=== PATIENT | male | born 1965 | race Caucasian/White ===

== ENCOUNTER 2017-04-13 10:43 | Observation (INO) | payer OTHER ==
--- NOTE | 2017-04-13 12:30 | DR.H&P ---
H&P - History & Physical for Day of: H&P Date: 04/13/17 - Chief Complaint Chief Complaint: Chest Pain, Dyspnea - Allergies Allergies/Adverse Reactions: Allergies Allergy/AdvReac Type Severity Reaction Status Date / Time No Known Drug Allergies Allergy Verified 04/13/17 11:24 - History of Present Illness History of Present Illness: The patient is a 51-year-old white male who presents to the clinic with complaints of chest pain. Patient describes having left-sided chest discomfort. States this discomfort is not affected by activity. Does have shortness of breath. Patient does have a 2-1/2-3 pack per day tobacco usage. Patient did have her Regadenison cardiac stress test which was negative. Patient has had an echo that revealed right atrial enlargement and grade 2 diastolic dysfunction. Patient today does complain of having increased pain. Patient will be admitted for further evaluation. - Past Medical History Past Medical History: COPD, Diabetes, Hypertension Additional Medical History: Skin Cancer - Past Surgical History Surgical History: Ortho Surgery, Other (Eye surgery) - Family History Family Medical History: Diabetes Mellitus, Hypertension Family History Comment: Kidney disease with failure - Social History Does patient currently use any type of tobacco product: Yes Have you used tobacco products in the last 12 months: Yes Type of Tobacco Use: Cigarettes How many years tobacco product used: 25 Packs per day or dips/chews per day: 2.5-3ppd Does any household member use tobacco: No Alcohol Use: Occasionally Drug Use: None - Medications Home Medications: Amlodipine Besylate [NORVASC 10 MG *] 1 tab PO DAILY 04/13/17 [History Confirmed 04/13/17] Amlodipine Besylate [NORVASC 5 MG *] 1 tab PO DAILY 04/13/17 [History Confirmed 04/13/17] Budesonide-Formoterol [SYMBICORT INH 160-4.5 mcg (10.2 g) *] 1 inh INH DAILY [History Confirmed 04/13/17] Eovwrrfhof-Owsf-Ujsmyqnu [FIORICET 50/325/40 MG *] 1 tab PO Q6H PRN 04/13/17 [ History Confirmed 04/13/17] Lisinopril 1 tab PO DAILY 04/13/17 [History Confirmed 04/13/17] Ranitidine HCl 1 tab PO HS 09/27/17 [History Confirmed 04/13/17] - Review of Systems Constitutional: Malaise Eyes: No Symptoms Reported ENT: No Symptoms Reported Respiratory: Shortness of Breath Cardiovascular: Chest Pain Gastrointestinal: No Symptoms Reported Genitourinary: No Symptoms Reported Musculoskeletal: No Symptoms Reported Skin: No Symptoms Reported Neurological: No Symptoms Reported - Physical Exam Vital Signs: Temperature 98.3 F Pulse Rate [Right Brachial] 79 Respiratory Rate 20 Blood Pressure [Left Arm] 131/73 Blood Pressure [Right Arm] 131/73 O2 Sat by Pulse Oximetry 96 Oriented: Normal Eyes: Normal Ear: Normal Nose: Normal Throat: Normal Respiratory: Clear Throughout (But Coarse) Cardiovascular: Normal : Normal Auscultation: Bowel Sounds: Normal Palpation: Normal Tenderness: Normal Skin: Normal Musculoskeletal: Normal Psychiatric: Normal Mood Description: Calm Affect: Normal Speech Pattern: Clear - Assessment/Plan (1) Chest pain Status: Acute Plan: Cardiac enzymes, ekgs (2) Diastolic heart failure Qualifiers: Heart failure chronicity: chronic Qualified Code(s): I50.32 - Chronic diastolic (congestive) heart failure Narrative Support Text: Grade 2 on ECHO Status: Acute (3) Dyspnea Qualifiers: Dyspnea type: dyspnea on exertion Qualified Code(s): R06.09 - Other forms of dyspnea Status: Acute Plan: CT Chest
[2017-04-13 12:34] LABS: BASOPHILS # (AUTO) 0.2 X10^3/uL (0.0-0.1); BASOPHILS % (AUTO) 1.8 % (0.2-1.0); EOSINOPHILS # (AUTO) 0.2 x10^3/uL (0.0-0.2); EOSINOPHILS % (AUTO) 2.3 % (0.9-2.9); HEMOGLOBIN 15.1 g/dL (13.5-18.0); LYMPHOCYTES # (AUTO) 2.5 X10^3/uL (1.3-2.9); LYMPHOCYTES % (AUTO) 24.1 % (21.0-51.0); MEAN CORPUSCULAR HEMOGLOBIN 32.3 pg (27.0-34.0); MEAN CORPUSCULAR HGB CONC 35.2 g/dL (33.0-35.0); MEAN CORPUSCULAR VOLUME 91.8 fL (80.0-100.0); MONOCYTES # (AUTO) 0.8 x10^3/uL (0.3-0.8); MONOCYTES % (AUTO) 7.6 % (0.0-13.0); NEUTROPHILS # (AUTO) 6.7 x10^3/uL (2.2-4.8); NEUTROPHILS % (AUTO) 64.2 % (42.0-75.0); PLATELET COUNT 290 X10^3/uL (150.0-450.0); RED BLOOD COUNT 4.68 X10^6/uL (4.7-6.0); WHITE BLOOD COUNT 10.5 X10^3/uL (3.6-10.0)
[2017-04-13 12:43] LABS: ALANINE AMINOTRANSFERASE 51 Units/L (12-78); ALBUMIN 3.8 g/dL (3.4-5.0); ALKALINE PHOSPHATASE 76 Units/L (46-116); ASPARTATE AMINO TRANSFERASE 33 Units/L (15-37); BLOOD UREA NITROGEN 11 mg/dL (7-18); CALCIUM 9.1 mg/dL (8.5-10.1); CHLORIDE 103 mmol/L (98-107); MAGNESIUM 2.1 mg/dL (1.7-2.9); SODIUM 137 mmol/L (136-145); TOTAL PROTEIN 7.5 g/dL (6.4-8.2); eGFR BLACK RACES > 60 (>60); eGFR NON BLACK RACES > 60 (>60)
[2017-04-13 13:00] VITALS: BMI 29.7
[2017-04-13 13:11] LABS: CKMB % 0.4 % (<4); CREATINE KINASE 573 Units/L (39-308); CREATINE KINASE MB 2.2 ng/mL (0-4.0); TROPONIN I < 0.02 ng/mL (0-1.5)
[2017-04-13] MEDS ORDERED: NICODERM PATCH 21 MG/24 HR TD SCH (14:00)
[2017-04-13 14:15] LABS: BILIRUBIN,URINE NEGATIVE (NEGATIVE); BLOOD/HEMOGLOBIN,URINE NEGATIVE (NEGATIVE); GLUCOSE, URINE NEGATIVE (NEGATIVE); KETONES,URINE NEGATIVE (NEGATIVE); LEUKOCYTE ESTERASE ,URINE NEGATIVE (NEGATIVE); NITRITES,URINE NEGATIVE (NEGATIVE); PH,URINE 6.5 (5.0 - 8.0); PROTEIN,URINE NEGATIVE (NEGATIVE); UROBILINOGEN,URINE NORMAL (NORMAL)
[2017-04-13 14:22] LABS: AMORPHOUS SEDIMENT,UR TRACE /HPF (NEGATIVE); APPEARANCE,URINE CLEAR (CLEAR); BACTERIA,URINE NEGATIVE /HPF (NEGATIVE); COLOR,URINE PALE YELLOW (YELLOW); MUCUS,URINE RARE /HPF (NEGATIVE); RBC,URINE NONE SEEN /HPF (NEGATIVE); SQUAMOUS EPITHELIAL CELL,UR NEGATIVE /HPF (NEGATIVE)
[2017-04-13] MEDS ORDERED: MORPHINE SULFATE INJ 2 MG INJ IVP PRN (17:48)
[2017-04-13] MEDS ORDERED: TYLENOL 325 MG TAB PO PRN (17:48)
[2017-04-13] MEDS ORDERED: NORCO 5/325 MG TAB PO PRN (17:48)
[2017-04-13 19:09] LABS: CKMB % 0.4 % (<4); CREATINE KINASE 401 Units/L (39-308); CREATINE KINASE MB 1.4 ng/mL (0-4.0); TROPONIN I < 0.02 ng/mL (0-1.5)
[2017-04-13] MEDS ORDERED: FIORICET TAB PO PRN (21:16)
--- NOTE | 2017-04-13 23:38 | RAD ---
HISTORY: chest pain Study: single view of the chest Comparison:none Findings: The trachea is midline. The cardiac silhouette is unremarkable. The lungs are clear without focal i nfiltrate or effusion. The bony thorax is unremarkable. IMPRESSION: 1. No acute cardiopulmonary disease. Reported By:
[2017-04-14 01:41] LABS: CKMB % 0.3 % (<4); CREATINE KINASE 352 Units/L (39-308); CREATINE KINASE MB 1.2 ng/mL (0-4.0); TROPONIN I < 0.02 ng/mL (0-1.5)
[2017-04-14 04:19] VITALS: BP 87/53
[2017-04-14 05:26] LABS: BASOPHILS # (AUTO) 0.1 X10^3/uL (0.0-0.1); BASOPHILS % (AUTO) 1.4 % (0.2-1.0); EOSINOPHILS # (AUTO) 0.3 x10^3/uL (0.0-0.2); HEMOGLOBIN 14.2 g/dL (13.5-18.0); LYMPHOCYTES # (AUTO) 2.4 X10^3/uL (1.3-2.9); LYMPHOCYTES % (AUTO) 32.1 % (21.0-51.0); MEAN CORPUSCULAR HGB CONC 34.6 g/dL (33.0-35.0); MEAN CORPUSCULAR VOLUME 92.3 fL (80.0-100.0); MEAN PLATELET VOLUME 8.8 fL (7.4-11.0); MONOCYTES # (AUTO) 0.7 x10^3/uL (0.3-0.8); MONOCYTES % (AUTO) 9.6 % (0.0-13.0); NEUTROPHILS # (AUTO) 3.9 x10^3/uL (2.2-4.8); NEUTROPHILS % (AUTO) 52.9 % (42.0-75.0); PLATELET COUNT 256 X10^3/uL (150.0-450.0); RED BLOOD COUNT 4.44 X10^6/uL (4.7-6.0); RED CELL DISTRIBUTION WIDTH 13.3 % (11.6-16.5); WHITE BLOOD COUNT 7.4 X10^3/uL (3.6-10.0)
[2017-04-14 05:34] LABS: ALANINE AMINOTRANSFERASE 40 Units/L (12-78); ALBUMIN 3.2 g/dL (3.4-5.0); ALKALINE PHOSPHATASE 71 Units/L (46-116); ASPARTATE AMINO TRANSFERASE 22 Units/L (15-37); BLOOD UREA NITROGEN 10 mg/dL (7-18); CALCIUM 8.5 mg/dL (8.5-10.1); CARBON DIOXIDE 25.6 mmol/L (21-32); CHLORIDE 104 mmol/L (98-107); CHOL/HDL RATIO 6.7 (0.0-5.0); CHOLESTEROL 188 mg/dL (0-200); COR CA(FOR HYPOALB) 9.1 mg/dL (8.5-10.1); COR NA(FOR HYPERGLY) 139 mmol/L (136-145); CREATININE 1.02 mg/dL (0.70-1.30); HDL CHOLESTEROL 28 mg/dL (40-60); SODIUM 139 mmol/L (136-145); TOTAL PROTEIN 6.4 g/dL (6.4-8.2); TRIGLYCERIDES 104 mg/dL (0-150); eGFR BLACK RACES > 60 (>60); eGFR NON BLACK RACES > 60 (>60)
[2017-04-14] MEDS ORDERED: NORVASC TAB 10 MG PO SCH (09:00)
[2017-04-14] MEDS ORDERED: ZESTRIL TAB 20 MG PO SCH (09:00)
[2017-04-14] MEDS ORDERED: ASPIRIN PO SCH (09:00)
[2017-04-14] MEDS ORDERED: ZANTAC PO SCH (21:00)
== END 2017-04-14 07:15 | disposition short-term general hospital (02) ==
LOC: MED/SURG 10:43
PROVIDERS: ADMIT Internal Medicine; ATTEND Internal Medicine
DX: R07.89 Other chest pain (principal); R94.4 Abnormal results of kidney function studies; R06.09 Other forms of dyspnea; J44.9 Chronic obstructive pulmonary disease, unspecified; E11.65 Type 2 diabetes mellitus with hyperglycemia; I10 Essential (primary) hypertension; I50.32 Chronic diastolic (congestive) heart failure
CPT/HCPCS: 36415; 71010; 80053; 80061; 81001; 82550; 82553; 83735; 84484; 85025; 85610; 93005; 93010; 94760; A4222; G0378; J2270

== ENCOUNTER 2017-06-28 12:56 | Observation (INO) | payer OTHER ==
[2017-06-28 15:17] LABS: BASOPHILS # (AUTO) 0.1 X10^3/uL (0.0-0.1); BASOPHILS % (AUTO) 1.1 % (0.2-1.0); EOSINOPHILS # (AUTO) 0.2 x10^3/uL (0.0-0.2); EOSINOPHILS % (AUTO) 2.2 % (0.9-2.9); HEMATOCRIT 45.6 % (42.0-54.0); HEMOGLOBIN 15.7 g/dL (13.5-18.0); LYMPHOCYTES # (AUTO) 2.4 X10^3/uL (1.3-2.9); LYMPHOCYTES % (AUTO) 24.1 % (21.0-51.0); MEAN CORPUSCULAR HEMOGLOBIN 31.6 pg (27.0-34.0); MEAN CORPUSCULAR HGB CONC 34.5 g/dL (33.0-35.0); MEAN CORPUSCULAR VOLUME 91.5 fL (80.0-100.0); MEAN PLATELET VOLUME 8.4 fL (7.4-11.0); MONOCYTES # (AUTO) 0.4 x10^3/uL (0.3-0.8); MONOCYTES % (AUTO) 4.1 % (0.0-13.0); NEUTROPHILS # (AUTO) 6.8 x10^3/uL (2.2-4.8); NEUTROPHILS % (AUTO) 68.5 % (42.0-75.0); PLATELET COUNT 337 X10^3/uL (150.0-450.0); RED BLOOD COUNT 4.98 X10^6/uL (4.7-6.0); RED CELL DISTRIBUTION WIDTH 13.4 % (11.6-16.5)
[2017-06-28 15:27] LABS: ALANINE AMINOTRANSFERASE 55 Units/L (12-78); ALKALINE PHOSPHATASE 122 Units/L (46-116); ASPARTATE AMINO TRANSFERASE 27 Units/L (15-37); BLOOD UREA NITROGEN 11 mg/dL (7-18); CALCIUM 8.9 mg/dL (8.5-10.1); CARBON DIOXIDE 24.4 mmol/L (21-32); CHLORIDE 103 mmol/L (98-107); COR NA(FOR HYPERGLY) 141 mmol/L (136-145); CREATININE 1.14 mg/dL (0.70-1.30); MAGNESIUM 1.8 mg/dL (1.7-2.9); SODIUM 140 mmol/L (136-145); eGFR BLACK RACES > 60 (>60); eGFR NON BLACK RACES > 60 (>60)
[2017-06-28 15:40] LABS: CKMB % 0.6 % (<4); CREATINE KINASE 359 Units/L (39-308); CREATINE KINASE MB 2.1 ng/mL (0-4.0); TROPONIN I < 0.02 ng/mL (0-1.5)
--- NOTE | 2017-06-28 15:51 | RAD ---
AP chest Indication: Chest pain Comparison: 04/13/2017. Findings: The lungs are clear and heart size is normal. No focal airspace opacity, pleural effusion o r pneumothorax. Trachea is midline. Node acute osseous abnormality. Impression: No acute cardiopulmonary abnormality or change from prior exam. Reported By:
[2017-06-28] MEDS: NITRO-BID OINT 2% Multi-Dose tube TD SCH ×2 (15:58→21:10)
[2017-06-28] MEDS: ASPIRIN PO SCH (15:59)
[2017-06-28 16:47] VITALS: BMI 27.6
[2017-06-28] MEDS ORDERED: MORPHINE SULFATE INJ 4 MG ONE (17:31)
[2017-06-28] MEDS: MORPHINE SULFATE INJ 2 MG INJ IVP PRN (17:37)
[2017-06-28] MEDS ORDERED: FIORICET TAB PO PRN (19:55)
[2017-06-28] MEDS ORDERED: LIPITOR TAB 40 MG PO SCH (21:00)
[2017-06-28] MEDS: LOVENOX INJ 40 MG SYR SC SCH (21:12)
[2017-06-28 21:31] LABS: CKMB % 0.6 % (<4); CREATINE KINASE 236 Units/L (39-308); CREATINE KINASE MB 1.4 ng/mL (0-4.0); TROPONIN I < 0.02 ng/mL (0-1.5)
--- NOTE | 2017-06-28 22:10 | DR.H&P ---
H&P - History & Physical for Day of: H&P Date: 06/28/17 - Chief Complaint Chief Complaint: Chest pain - Allergies Allergies/Adverse Reactions: Allergies Allergy/AdvReac Type Severity Reaction Status Date / Time FISH OILS PILLS AdvReac Uncoded 06/28/17 15:00 - History of Present Illness History of Present Illness: The patient is a 52yo WM who presents to [facility] with complaint of left side chest pain. States it is a sharp pain. Does have mild nausea and SOB. States pain is worse when he works. States he does work 13hr days. States that it take 3-4hrs for the pain to subsude once he rests. Patient has recent diagnosis of CAD with cath 04/03 70% LAD with stent and angioplasty to 5 vessels. States he tried taking fish oil but made him nauseated. Does continue to smoke. - Past Medical History Past Medical History: COPD, Coronary Artery Disease, Diabetes, Hypertension Additional Medical History: Skin Cancer - Past Surgical History Surgical History: Angioplasty/Stents, Ortho Surgery, Other Additional Surgical History: 70% LAD, Angioplasty x 5 - Family History Family Medical History: Diabetes Mellitus, Hypertension - Social History Does patient currently use any type of tobacco product: Yes Have you used tobacco products in the last 12 months: Yes Type of Tobacco Use: Cigarettes How many years tobacco product used: 40 Does any household member use tobacco: Yes Alcohol Use: DAILY Drug Use: None - Medications Home Medications: Aspirin EC [ASPIRIN EC 81 MG *] 1 tab PO DAILY 06/28/17 [History Confirmed 06/28] Atorvastatin Calcium [Atorvastatin Calcium] 80 mg PO HS 06/28/17 [History Confirmed 06/28/17] Clopidogrel Bisulfate [PLAVIX TAB 75 MG *] 1 tab PO DAILY 06/28/17 [History Confirmed 06/28/17] Loratadine 10 mg 24-Hr Tab [LORATADINE 10 MG *] 1 tab PO DAILY 06/28/17 [ History Confirmed 06/28/17] Omeprazole [Omeprazole] 40 mg PO DAILY 06/28/17 [History Confirmed 06/28/17] - Review of Systems Constitutional: Malaise Eyes: No Symptoms Reported ENT: No Symptoms Reported Respiratory: No Symptoms Reported Cardiovascular: Chest Pain Gastrointestinal: No Symptoms Reported Genitourinary: No Symptoms Reported Musculoskeletal: No Symptoms Reported Skin: No Symptoms Reported Neurological: No Symptoms Reported - Physical Exam Vital Signs: Temperature 98.6 F Pulse Rate [Right Brachial] 75 Respiratory Rate 20 Blood Pressure [Left Arm] 107/59 Blood Pressure [Right Arm] 137/65 Blood Pressure 87/53 O2 Sat by Pulse Oximetry 95 Oriented: Normal Eyes: Normal Ear: Normal Nose: Normal Throat: Normal Respiratory: Clear Throughout Cardiovascular: Normal : Normal Auscultation: Bowel Sounds: Normal Palpation: Normal Tenderness: Normal Skin: Normal Musculoskeletal: Normal Psychiatric: Normal Mood Description: Calm Affect: Normal Speech Pattern: Clear - Assessment/Plan (1) Coronary artery disease Status: Acute Plan: Telemetry. Serial Cardiac enzymes and EKGs. Probable transfer to [facility] to Dr Hansen. (2) Chest pain Status: Acute Plan: Telemetry. Serial Cardiac enzymes and EKGs. Probable transfer to [facility] to Dr Hansen.
[2017-06-28] MEDS: NICOTINE PATCH TD SCH (22:17)
[2017-06-29] MEDS ORDERED: NORCO 5/325 MG TAB PO PRN (01:26)
[2017-06-29 01:55] LABS: BILIRUBIN,URINE NEGATIVE (NEGATIVE); BLOOD/HEMOGLOBIN,URINE NEGATIVE (NEGATIVE); GLUCOSE, URINE NEGATIVE (NEGATIVE); KETONES,URINE NEGATIVE (NEGATIVE); LEUKOCYTE ESTERASE ,URINE NEGATIVE (NEGATIVE); NITRITES,URINE NEGATIVE (NEGATIVE); PROTEIN,URINE 1+ (NEGATIVE); UROBILINOGEN,URINE 1+ (NORMAL)
[2017-06-29 02:30] LABS: APPEARANCE,URINE CLEAR (CLEAR); BACTERIA,URINE NEGATIVE /HPF (NEGATIVE); COLOR,URINE DARK YELLOW (YELLOW); RBC,URINE NONE SEEN /HPF (NEGATIVE); SQUAMOUS EPITHELIAL CELL,UR RARE /HPF (NEGATIVE)
[2017-06-29] MEDS: NITRO-BID OINT 2% Multi-Dose tube TD SCH ×2 (02:31→09:18)
[2017-06-29 03:24] LABS: CHOL/HDL RATIO 5.8 (0.0-5.0)
[2017-06-29 03:35] LABS: CKMB % 0.5 % (<4); CREATINE KINASE 206 Units/L (39-308); TROPONIN I < 0.02 ng/mL (0-1.5)
[2017-06-29] MEDS ORDERED: MORPHINE SULFATE INJ 2 MG INJ ONE (06:25)
[2017-06-29] MEDS: MORPHINE SULFATE INJ 2 MG INJ IVP PRN (06:30)
[2017-06-29 07:56] VITALS: BP 120/69
[2017-06-29] MEDS ORDERED: ZESTRIL TAB 20 MG ONE (08:16)
[2017-06-29] MEDS ORDERED: PriLOSEC PO SCH (09:00)
[2017-06-29] MEDS ORDERED: PLAVIX PO SCH (09:00)
[2017-06-29] MEDS ORDERED: ZESTRIL TAB 20 MG PO SCH (09:00)
[2017-06-29] MEDS ORDERED: ASPIRIN EC 81 MG PO SCH (09:00)
[2017-06-29] MEDS ORDERED: NORVASC TAB 10 MG PO SCH (09:00)
[2017-06-29] MEDS ORDERED: CLARITIN PO SCH (09:00)
[2017-06-29] MEDS: ASPIRIN PO SCH (09:17)
[2017-06-29] MEDS: LOVENOX INJ 40 MG SYR SC SCH (09:17)
[2017-06-29] MEDS: NICOTINE PATCH TD SCH (09:17)
== END 2017-06-29 11:30 | disposition hospice, inpatient (51) ==
LOC: MED/SURG 12:56 → UNDOADMOB 12:56 → MED/SURG 14:24
PROVIDERS: ADMIT Internal Medicine; ATTEND Internal Medicine
DX: R07.89 Other chest pain (principal); I25.10 Atherosclerotic heart disease of native coronary artery without angina pectoris; R06.02 Shortness of breath; J44.9 Chronic obstructive pulmonary disease, unspecified; E11.65 Type 2 diabetes mellitus with hyperglycemia; I10 Essential (primary) hypertension; R94.31 Abnormal electrocardiogram [ECG] [EKG]; Z79.1 Long term (current) use of non-steroidal anti-inflammatories (NSAID)
CPT/HCPCS: 36415; 71010; 80053; 80061; 81001; 82550; 82553; 83735; 84484; 85025; 85610; 85730; 93005; 93010; 94760; A4216; A4222; G0378; J1650; J2270

== ENCOUNTER 2018-02-27 11:18 | Inpatient (IN) ==
--- NOTE | 2018-02-27 12:00 | DR.H&P ---
H&P - History & Physical for Day of: H&P Date: 02/27/18 - Chief Complaint Chief Complaint: SOB x 1 week, Chest Pain - History of Present Illness History of Present Illness: The patient is a 52-year-old white male who [facility] of shortness of breath 1 week. States that he's been doing nebulizer treatments daily and Symbicort without improvement. States that he is status seen male if he exerts himself or 5 minutes he short of breath. Patient does have heavy history of tobacco use. Patient also complains of having chest pain that is strong in nature. States that he sits down and rest pain resolves within 5 minutes. Patient does have strong coronary artery disease history with stents placed this year. Patient will be admitted for further treatment. - Past Medical History Past Medical History: COPD, Coronary Artery Disease, Diabetes, Hypertension Additional Medical History: Skin Cancer - Past Surgical History Surgical History: Angioplasty/Stents, Ortho Surgery, Other Additional Surgical History: 70% LAD, Angioplasty x 5 - Family History Family Medical History: Diabetes Mellitus, Hypertension - Social History Does patient currently use any type of tobacco product: Yes Have you used tobacco products in the last 12 months: Yes Type of Tobacco Use: Cigarettes How many years tobacco product used: 20 Packs per day or dips/chews per day: 2 Does any household member use tobacco: No Alcohol Use: None Drug Use: None - Medications Home Medications: FISH OILS PILLS Adverse Reaction (Uncoded 06/28/17 15:00) - Review of Systems Constitutional: Malaise Eyes: No Symptoms Reported ENT: No Symptoms Reported Respiratory: See HPI, Cough, Shortness of Breath, SOB with Excertion, Pleuritic Pain, Sputum, Wheezing Cardiovascular: Chest Pain, Orthopnea Gastrointestinal: No Symptoms Reported Genitourinary: No Symptoms Reported Musculoskeletal: No Symptoms Reported Skin: No Symptoms Reported Neurological: No Symptoms Reported - Physical Exam Vital Signs: Blood Pressure [Left Arm] 120/69 Blood Pressure [Right Arm] 137/65 Blood Pressure 120/69 Oriented: Normal Eyes: Normal Ear: Normal Nose: Normal Throat: Normal Respiratory: Diminished Throughout, LLL Rhonchi Cardiovascular: Normal : Normal Auscultation: Bowel Sounds: Normal Palpation: Normal Tenderness: Normal Skin: Normal Musculoskeletal: Normal Psychiatric: Normal Mood Description: Calm Affect: Normal Speech Pattern: Clear - Assessment/Plan (1) COPD exacerbation Status: Acute Plan: CXR, IV STEROIDS, ANTIBIOTICS, NEBS (2) Chest pain Status: Acute Plan: CARDIAC ENZYMES, EKGS (3) Coronary artery disease Status: Acute Plan: HOME MEDS - Allergies Allergies/Adverse Reactions: Allergies Allergy/AdvReac Type Severity Reaction Status Date / Time FISH OILS PILLS AdvReac Uncoded 06/28/17 15:00
[2018-02-27] MEDS ORDERED: NITROSTAT SL PRN (12:28)
[2018-02-27] MEDS ORDERED: MORPHINE SULFATE INJ 2 MG INJ IVP PRN (12:28)
[2018-02-27] MEDS: NS 1000 ML 1,000 ML IV SCH (12:53)
[2018-02-27] MEDS ORDERED: NICOTINE PATCH TD SCH (13:00)
[2018-02-27] MEDS: ZITHROMAX INJ 500 MG VIAL 500 MG in NS 250 ML IV 250 ML IV SCH (13:15)
[2018-02-27 13:24] LABS: ALANINE AMINOTRANSFERASE 32 Units/L (12-78); ALBUMIN 3.4 g/dL (3.4-5.0); ALKALINE PHOSPHATASE 99 Units/L (46-116); ASPARTATE AMINO TRANSFERASE 25 Units/L (15-37); BLOOD UREA NITROGEN 12 mg/dL (7-18); CALCIUM 8.6 mg/dL (8.5-10.1); CARBON DIOXIDE 23.6 mmol/L (21-32); CHLORIDE 103 mmol/L (98-107); CREATININE 0.91 mg/dL (0.70-1.30); MAGNESIUM 1.8 mg/dL (1.7-2.9); SODIUM 134 mmol/L (136-145); TOTAL PROTEIN 6.9 g/dL (6.4-8.2); eGFR NON BLACK RACES > 60 (>60)
[2018-02-27] MEDS: FORTAZ or TAZICEF VIAL INJ 1 G in NS 100 ML IV + SPIKE MINIBAG* 100 ML IV SCH ×2 (13:29→21:49)
--- NOTE | 2018-02-27 13:31 | RAD ---
Exam: Portable chest History: 52-year-old male with chest pain and COPD Comparison: Previous chest radiograph from 06/28/2017. Findings: Heart size and pulmonary vasculature are normal. Lungs are clear with no infiltrate or significant ef fusion on either side. Bony thorax is unremarkable as well. Impression: No acute cardiopulmonary abnormality is seen on this exam. Reported By:
[2018-02-27] MEDS: DUONEB 0.5 MG/3 MG NEB SCH ×3 (13:35→21:52)
[2018-02-27 13:40] LABS: BILIRUBIN,URINE NEGATIVE (NEGATIVE); BLOOD/HEMOGLOBIN,URINE NEGATIVE (NEGATIVE); GLUCOSE, URINE NEGATIVE (NEGATIVE); KETONES,URINE NEGATIVE (NEGATIVE); LEUKOCYTE ESTERASE ,URINE NEGATIVE (NEGATIVE); NITRITES,URINE NEGATIVE (NEGATIVE); PROTEIN,URINE NEGATIVE (NEGATIVE); UROBILINOGEN,URINE NORMAL (NORMAL)
[2018-02-27 13:42] LABS: APPEARANCE,URINE CLEAR (CLEAR); COLOR,URINE YELLOW (YELLOW)
[2018-02-27 13:48] LABS: CKMB % 0.5 % (<4); CREATINE KINASE 464 Units/L (39-308); CREATINE KINASE MB 2.3 ng/mL (0-4.0); TROPONIN I < 0.02 ng/mL (0-1.5)
[2018-02-27 13:48] LABS: ABG BASE EXCESS 1.9 mmol/L (-2.0-2.0); ABG HCO3 26.6 mmol/L (22-26)
[2018-02-27 13:49] LABS: ABG ALLEN TEST POS
[2018-02-27 14:24] VITALS: BMI 29.1
[2018-02-27] MEDS: LOVENOX INJ 40 MG SYR SC SCH (14:28)
[2018-02-27 18:57] LABS: CKMB % 0.5 % (<4); CREATINE KINASE 353 Units/L (39-308); CREATINE KINASE MB 1.8 ng/mL (0-4.0); TROPONIN I < 0.02 ng/mL (0-1.5)
[2018-02-27 19:42] LABS: BASOPHILS # (AUTO) 0.1 X10^3/uL (0.0-0.1); BASOPHILS % (AUTO) 1.4 % (0.2-1.0); EOSINOPHILS # (AUTO) 0.2 x10^3/uL (0.0-0.2); EOSINOPHILS % (AUTO) 1.7 % (0.9-2.9); HEMATOCRIT 41.8 % (42.0-54.0); HEMOGLOBIN 14.2 g/dL (13.5-18.0); LYMPHOCYTES # (AUTO) 2.3 X10^3/uL (1.3-2.9); MEAN CORPUSCULAR HEMOGLOBIN 31.6 pg (27.0-34.0); MEAN CORPUSCULAR VOLUME 92.8 fL (80.0-100.0); MEAN PLATELET VOLUME 9.6 fL (7.4-11.0); NEUTROPHILS # (AUTO) 6.1 x10^3/uL (2.2-4.8); NEUTROPHILS % (AUTO) 62.9 % (42.0-75.0); PLATELET COUNT 291 X10^3/uL (150.0-450.0); RED BLOOD COUNT 4.51 X10^6/uL (4.7-6.0); WHITE BLOOD COUNT 9.6 X10^3/uL (3.6-10.0)
[2018-02-27] MEDS: CHECK PATCH XX SCH (21:48)
[2018-02-27] MEDS: NICOTINE PATCH TD SCH (21:49)
[2018-02-27] MEDS: PULMICORT NEB TX 0.5 MG NEB SCH (21:52)
[2018-02-28 00:55] LABS: CKMB % 0.5 % (<4); CREATINE KINASE 307 Units/L (39-308); CREATINE KINASE MB 1.6 ng/mL (0-4.0); TROPONIN I < 0.02 ng/mL (0-1.5)
[2018-02-28] MEDS: DUONEB 0.5 MG/3 MG NEB SCH ×6 (01:57→20:07)
[2018-02-28] MEDS: FORTAZ or TAZICEF VIAL INJ 1 G in NS 100 ML IV + SPIKE MINIBAG* 100 ML IV SCH ×3 (05:43→21:29)
[2018-02-28] MEDS: NS 1000 ML 1,000 ML IV SCH ×2 (05:43→15:57)
[2018-02-28 07:09] LABS: BASOPHILS # (AUTO) 0.1 X10^3/uL (0.0-0.1); BASOPHILS % (AUTO) 0.9 % (0.2-1.0); EOSINOPHILS # (AUTO) 0.2 x10^3/uL (0.0-0.2); EOSINOPHILS % (AUTO) 2.1 % (0.9-2.9); HEMATOCRIT 39.9 % (42.0-54.0); HEMOGLOBIN 13.8 g/dL (13.5-18.0); LYMPHOCYTES # (AUTO) 1.9 X10^3/uL (1.3-2.9); LYMPHOCYTES % (AUTO) 19.4 % (21.0-51.0); MEAN CORPUSCULAR HGB CONC 34.7 g/dL (33.0-35.0); MEAN CORPUSCULAR VOLUME 92.2 fL (80.0-100.0); MEAN PLATELET VOLUME 9.3 fL (7.4-11.0); MONOCYTES # (AUTO) 0.7 x10^3/uL (0.3-0.8); MONOCYTES % (AUTO) 7.7 % (0.0-13.0); NEUTROPHILS # (AUTO) 6.8 x10^3/uL (2.2-4.8); NEUTROPHILS % (AUTO) 69.9 % (42.0-75.0); PLATELET COUNT 259 X10^3/uL (150.0-450.0); RED BLOOD COUNT 4.32 X10^6/uL (4.7-6.0); RED CELL DISTRIBUTION WIDTH 13.7 % (11.6-16.5); WHITE BLOOD COUNT 9.7 X10^3/uL (3.6-10.0)
[2018-02-28 07:28] LABS: ALANINE AMINOTRANSFERASE 31 Units/L (12-78); ALBUMIN 2.9 g/dL (3.4-5.0); ALKALINE PHOSPHATASE 101 Units/L (46-116); ASPARTATE AMINO TRANSFERASE 24 Units/L (15-37); BLOOD UREA NITROGEN 9 mg/dL (7-18); CALCIUM 7.9 mg/dL (8.5-10.1); CARBON DIOXIDE 26.9 mmol/L (21-32); CHLORIDE 105 mmol/L (98-107); CHOL/HDL RATIO 6.5 (0.0-5.0); CHOLESTEROL 170 mg/dL (0-200); COR CA(FOR HYPOALB) 8.8 mg/dL (8.5-10.1); CREATININE 0.76 mg/dL (0.70-1.30); HDL CHOLESTEROL 26 mg/dL (40-60); SODIUM 137 mmol/L (136-145); TOTAL PROTEIN 6.3 g/dL (6.4-8.2); TRIGLYCERIDES 336 mg/dL (0-150); eGFR NON BLACK RACES > 60 (>60)
[2018-02-28] MEDS ORDERED: ZESTRIL TAB 20 MG ONE (07:55)
[2018-02-28] MEDS: ZITHROMAX INJ 500 MG VIAL 500 MG in NS 250 ML IV 250 ML IV SCH (08:00)
[2018-02-28] MEDS: SOLU-Medrol 40 MG VIAL IVP SCH ×2 (08:01→16:56)
[2018-02-28] MEDS: LOVENOX INJ 40 MG SYR SC SCH (08:01)
[2018-02-28] MEDS: PLAVIX PO SCH (08:03)
[2018-02-28] MEDS: CLARITIN PO SCH (08:04)
[2018-02-28] MEDS: ASPIRIN EC 81 MG PO SCH (08:04)
[2018-02-28] MEDS: LOPRESSOR TAB 25 MG PO SCH ×2 (08:04→20:42)
[2018-02-28] MEDS: IMDUR PO SCH (08:04)
[2018-02-28] MEDS: PriLOSEC PO SCH (08:04)
[2018-02-28] MEDS: NORVASC TAB 10 MG PO SCH (08:04)
[2018-02-28] MEDS: ZESTRIL TAB 20 MG PO SCH (08:04)
[2018-02-28] MEDS: CHECK PATCH XX SCH ×2 (08:05→20:44)
[2018-02-28] MEDS: PULMICORT NEB TX 0.5 MG NEB SCH ×2 (08:49→20:07)
[2018-02-28] MEDS ORDERED: PATIENT'S HOME MEDICATION (Budesonide-Formoterol 1 INH) INH SCH (09:00)
[2018-02-28] MEDS: NICOTINE PATCH TD SCH (09:26)
[2018-02-28] MEDS: ROBITUSSIN (PLAIN) PO SCH ×3 (14:03→20:42)
--- NOTE | 2018-02-28 17:50 | PCM.PROG ---
Progress Note - Progress Note for Day of Date of Exam: 02/28/18 - Subjective Subjective: 52 WM ADMITTED ONE DAY AGO WITH INCREASED SOB, CHEST PAIN AND COPD EXACERBATION. PT HAD SERIAL CE ON ADMISSION, NEGATIVE. PT REPORTS INCREASED WHEEZING AND SOB. PT HAS HX OF COPD. PT CURRENTLY ON IV ATBX, RESP THERAPY, CULTURE PENDING. PT ON IV STEROIDS AND JET NEBS. PLAN TO CONTINUE RESP THERAPY, CARDIAC MONITORING. - Past Medical Family Social History Past Med/Fam/Surg Hx: No changes since H&P Allergies: Allergies FISH OILS PILLS Adverse Reaction (Uncoded 02/27/18 12:36) NAUSEA/VOMITING - Review of Systems ROS: No change since H&P - Vital Signs and I&O's Vital Signs: Temperature 97.7 F Pulse Rate [Apical] 110 Pulse Rate 97 Respiratory Rate 22 Blood Pressure [Left Arm] 110/84 Blood Pressure [Right Arm] 134/72 Blood Pressure 120/69 O2 Sat by Pulse Oximetry 93 Intake and Output: Intake & Output 02/26/18 02/27/18 02/28/18 03/01/18 11:59 11:59 11:59 11:59 Intake Total 3031 / 3031 1410 / 1410 Output Total 300 / 300 1600 / 1600 Balance 2731 / 2731 -190 / -190 - Physical Exam Oriented: Normal Eyes: Normal Ear: Normal Nose: Normal Throat: Normal Respiratory: Diminished, Wheezes, Rhonchi Cardiovascular: Normal : Normal Auscultation: Bowel Sounds: Normal Tenderness: Normal Skin: Normal Musculoskeletal: Normal Psychiatric: Normal Mood Description: Calm Affect: Normal Speech Pattern: Clear, Appropriate - Laboratory and Diagnostics Result Diagrams: 02/28/18 05:43 02/28/18 05:43 Labs: 02/28/18 13:59 Sputum - Expectorated Sputum - Final Laboratory WBC 9.7 X10^3/uL (3.6-10.0) 02/28/18 05:43 RBC 4.32 X10^6/uL (4.7-6.0) L 02/28/18 05:43 Hgb 13.8 g/dL (13.5-18.0) 02/28/18 05:43 Hct 39.9 % (42.0-54.0) L 02/28/18 05:43 MCV 92.2 fL (80.0-100.0) 02/28/18 05:43 MCH 32.0 pg (27.0-34.0) 02/28/18 05:43 MCHC 34.7 g/dL (33.0-35.0) 02/28/18 05:43 RDW 13.7 % (11.6-16.5) 02/28/18 05:43 Plt Count 259 X10^3/uL (150.0-450.0) 02/28/18 05:43 MPV 9.3 fL (7.4-11.0) 02/28/18 05:43 Neut % (Auto) 69.9 % (42.0-75.0) 02/28/18 05:43 Lymph % (Auto) 19.4 % (21.0-51.0) L 02/28/18 05:43 [place] % (Auto) 7.7 % (0.0-13.0) 02/28/18 05:43 Eos % (Auto) 2.1 % (0.9-2.9) 02/28/18 05:43 Baso % (Auto) 0.9 % (0.2-1.0) 02/28/18 05:43 Neut # (Auto) 6.8 x10^3/uL (2.2-4.8) H 02/28/18 05:43 Lymph # (Auto) 1.9 X10^3/uL (1.3-2.9) 02/28/18 05:43 [place] # (Auto) 0.7 x10^3/uL (0.3-0.8) 02/28/18 05:43 Eos # (Auto) 0.2 x10^3/uL (0.0-0.2) 02/28/18 05:43 Baso # (Auto) 0.1 X10^3/uL (0.0-0.1) 02/28/18 05:43 Absolute Nucleated RBC 0.1 /100WBC 02/28/18 05:43 INR Target Range - 02/27/18 12:45 INR 0.89 (0.8-1.3) 02/27/18 12:45 Sample Site Lft rad 02/27/18 13:32 ABG pH 7.420 (7.35-7.45) 02/27/18 13:32 ABG pCO2 41.0 mmHg (35.0-45.0) 02/27/18 13:32 ABG pO2 76.0 mmHg (80.0-100.0) L 02/27/18 13:32 ABG HCO3 26.6 mmol/L (22-26) H 02/27/18 13:32 ABG O2 Saturation 95.0 % (90-100) 02/27/18 13:32 ABG Base Excess 1.9 mmol/L (-2.0-2.0) 02/27/18 13:32 Kahlil Test Pos 02/27/18 13:32 A-a Gradient 22.0 mmHg 02/27/18 13:32 FiO2 21.000 02/27/18 13:32 Blood Gas Comments Eveline well gmb 02/27/18 13:32 Sodium 137 mmol/L (136-145) 02/28/18 05:43 Corrected Sodium TNP 02/28/18 05:43 Potassium 4.0 mmol/L (3.5-5.1) 02/28/18 05:43 Chloride 105 mmol/L (98-107) 02/28/18 05:43 Carbon Dioxide 26.9 mmol/L (21-32) 02/28/18 05:43 BUN 9 mg/dL (7-18) 02/28/18 05:43 Creatinine 0.76 mg/dL (0.70-1.30) 02/28/18 05:43 Est GFR (MDRD) Af Amer > 60 (>60) 02/28/18 05:43 Est GFR (MDRD) Non-Af > 60 (>60) 02/28/18 05:43 Glucose 110 mg/dL (65-99) H 02/28/18 05:43 Calcium 7.9 mg/dL (8.5-10.1) L 02/28/18 05:43 Corrected Calcium 8.8 mg/dL (8.5-10.1) 02/28/18 05:43 Magnesium 1.8 mg/dL (1.7-2.9) 02/27/18 12:45 Total Bilirubin 0.20 mg/dL (0.2-1.0) 02/28/18 05:43 AST 24 Units/L (15-37) 02/28/18 05:43 ALT 31 Units/L (12-78) 02/28/18 05:43 Alkaline Phosphatase 101 Units/L (46-116) 02/28/18 05:43 Creatine Kinase 307 Units/L (39-308) 02/28/18 00:25 CK-MB (CK-2) 1.6 ng/mL (0-4.0) 02/28/18 00:25 CK/CKMB % Calc 0.5 % (<4) 02/28/18 00:25 Troponin I < 0.02 ng/mL (0-1.5) 02/28/18 00:25 Total Protein 6.3 g/dL (6.4-8.2) L 02/28/18 05:43 Albumin 2.9 g/dL (3.4-5.0) L 02/28/18 05:43 Globulin 3.4 g/dL (2.5-4.5) 02/28/18 05:43 Albumin/Globulin Ratio 0.9 Ratio (1.1-2.1) L 02/28/18 05:43 Triglycerides 336 mg/dL (0-150) H 02/28/18 05:43 Cholesterol 170 mg/dL (0-200) 02/28/18 05:43 LDL Cholesterol, Calc 77 mg/dL (0-100) 02/28/18 05:43 HDL Cholesterol 26 mg/dL (40-60) L 02/28/18 05:43 Cholesterol/HDL Ratio 6.5 (0.0-5.0) H 02/28/18 05:43 Specimen Type Clean catch urine 02/27/18 13:12 Urine Color Yellow (YELLOW) 02/27/18 13:12 Urine Appearance Clear (CLEAR) 02/27/18 13:12 Urine pH 5.0 (5.0 - 8.0) 02/27/18 13:12 Ur Specific [place] 1.015 (1.000-1.030) 02/27/18 13:12 Urine Protein Negative (NEGATIVE) 02/27/18 13:12 Urine Glucose (UA) Negative (NEGATIVE) 02/27/18 13:12 Urine Ketones Negative (NEGATIVE) 02/27/18 13:12 Urine Occult Blood Negative (NEGATIVE) 02/27/18 13:12 Urine Nitrite Negative (NEGATIVE) 02/27/18 13:12 Urine Bilirubin Negative (NEGATIVE) 02/27/18 13:12 Urine Urobilinogen Normal (NORMAL) 02/27/18 13:12 Ur Leukocyte Esterase Negative (NEGATIVE) 02/27/18 13:12 - Plan (1) COPD exacerbation Status: Acute Plan: CXR, IV STEROIDS, ANTIBIOTICS, NEBS. SPUTUM CULTURE, SUPPLEMENTAL O2 PRN. BP CONTROL, CARDIAC MONITORING (2) Coronary artery disease Status: Acute Plan: HOME MEDS
[2018-02-28] MEDS: LIPITOR TAB 40 MG PO SCH (20:41)
[2018-03-01] MEDS: DUONEB 0.5 MG/3 MG NEB SCH ×3 (00:10→08:01)
[2018-03-01] MEDS: SOLU-Medrol 40 MG VIAL IVP SCH ×4 (01:05→21:57)
[2018-03-01] MEDS: NS 1000 ML 1,000 ML IV SCH ×2 (05:38→21:56)
[2018-03-01] MEDS: FORTAZ or TAZICEF VIAL INJ 1 G in NS 100 ML IV + SPIKE MINIBAG* 100 ML IV SCH ×3 (05:39→21:57)
[2018-03-01 06:19] LABS: BASOPHILS % (AUTO) 0.1 % (0.2-1.0); HEMATOCRIT 40.2 % (42.0-54.0); HEMOGLOBIN 13.7 g/dL (13.5-18.0); LYMPHOCYTES % (AUTO) 4.3 % (21.0-51.0); MEAN CORPUSCULAR HEMOGLOBIN 31.7 pg (27.0-34.0); MEAN CORPUSCULAR VOLUME 93.2 fL (80.0-100.0); MEAN PLATELET VOLUME 9.1 fL (7.4-11.0); MONOCYTES # (AUTO) 0.5 x10^3/uL (0.3-0.8); MONOCYTES % (AUTO) 1.9 % (0.0-13.0); NEUTROPHILS # (AUTO) 22.3 x10^3/uL (2.2-4.8); NEUTROPHILS % (AUTO) 93.7 % (42.0-75.0); PLATELET COUNT 297 X10^3/uL (150.0-450.0); RED BLOOD COUNT 4.32 X10^6/uL (4.7-6.0); RED CELL DISTRIBUTION WIDTH 14.4 % (11.6-16.5)
[2018-03-01 06:43] LABS: ALANINE AMINOTRANSFERASE 29 Units/L (12-78); ALBUMIN 2.9 g/dL (3.4-5.0); ALKALINE PHOSPHATASE 93 Units/L (46-116); ASPARTATE AMINO TRANSFERASE 16 Units/L (15-37); BLOOD UREA NITROGEN 12 mg/dL (7-18); CALCIUM 8.6 mg/dL (8.5-10.1); CARBON DIOXIDE 23.4 mmol/L (21-32); CHLORIDE 105 mmol/L (98-107); COR CA(FOR HYPOALB) 9.5 mg/dL (8.5-10.1); COR NA(FOR HYPERGLY) 138 mmol/L (136-145); CREATININE 0.94 mg/dL (0.70-1.30); SODIUM 136 mmol/L (136-145); TOTAL PROTEIN 6.5 g/dL (6.4-8.2); eGFR NON BLACK RACES > 60 (>60)
[2018-03-01 06:49] LABS: WHITE BLOOD COUNT 23.8 X10^3/uL (3.6-10.0)
[2018-03-01 07:13] LABS: BAND NEUTROPHILS % 2 % (0-10); PLATELET MORPHOLOGY COMMENT NORMAL (NORMAL)
[2018-03-01] MEDS ORDERED: ZESTRIL TAB 20 MG ONE (07:34)
[2018-03-01] MEDS: PULMICORT NEB TX 0.5 MG NEB SCH ×2 (08:01→20:15)
[2018-03-01] MEDS: LOVENOX INJ 40 MG SYR SC SCH (08:06)
[2018-03-01] MEDS: LOPRESSOR TAB 25 MG PO SCH ×2 (08:07→21:57)
[2018-03-01] MEDS: NICOTINE PATCH TD SCH (08:07)
[2018-03-01] MEDS: IMDUR PO SCH (08:07)
[2018-03-01] MEDS: PriLOSEC PO SCH (08:07)
[2018-03-01] MEDS: ASPIRIN EC 81 MG PO SCH (08:07)
[2018-03-01] MEDS: CHECK PATCH XX SCH ×2 (08:08→21:56)
[2018-03-01] MEDS: PLAVIX PO SCH (08:08)
[2018-03-01] MEDS: ZESTRIL TAB 20 MG PO SCH (08:08)
[2018-03-01] MEDS: NORVASC TAB 10 MG PO SCH (08:08)
[2018-03-01] MEDS: CLARITIN PO SCH (08:08)
[2018-03-01] MEDS: ZITHROMAX INJ 500 MG VIAL 500 MG in NS 250 ML IV 250 ML IV SCH (08:09)
[2018-03-01] MEDS: ROBITUSSIN (PLAIN) PO SCH ×4 (08:23→21:57)
--- NOTE | 2018-03-01 09:43 | RAD ---
Exam: Portable chest History: 52-year-old male with chest pain. Comparison: Previous chest radiograph from 02/27/2018. Findings Heart size and pulmonary vasculature are normal. Lungs are clear with no infiltrate or significant ef fusion on either side. Visualized bony thorax is unremarkable as well. Impression: No acute cardiopulmonary abnormality is seen on this exam Reported By:
[2018-03-01] MEDS: XOPENEX 1.25 MG/3 ML NEBULE NEB SCH ×3 (12:09→20:15)
[2018-03-01] MEDS ORDERED: XOPENEX 1.25 MG/3 ML NEBULE NEB SCH (13:00)
--- NOTE | 2018-03-01 13:35 | PCM.PROG ---
Progress Note - Progress Note for Day of Date of Exam: 03/01/18 - Subjective Subjective: 52 WM ADMITTED ONE DAY AGO WITH INCREASED SOB, CHEST PAIN AND COPD EXACERBATION. PT HAD SERIAL CE ON ADMISSION, NEGATIVE. PT REPORTS INCREASED WHEEZING AND SOB. PT HAS HX OF COPD. PT CURRENTLY ON IV ATBX, RESP THERAPY, CULTURE PENDING. PT ON IV STEROIDS AND JET NEBS. CONTINUES WITH DIFFUSE EXPIRATORY WHEEZING AND CHEST TIGHTNESS AFTER ALBUTERAL TREATMENTS. - Past Medical Family Social History Past Med/Fam/Surg Hx: No changes since H&P Allergies: Allergies FISH OILS PILLS Adverse Reaction (Uncoded 02/27/18 12:36) NAUSEA/VOMITING - Review of Systems ROS: No change since H&P - Vital Signs and I&O's Vital Signs: Temperature 98.7 F Pulse Rate [Apical] 105 Pulse Rate 105 Respiratory Rate 28 Blood Pressure [Left Arm] 139/70 Blood Pressure [Right Arm] 130/60 Blood Pressure 120/69 O2 Sat by Pulse Oximetry 96 Intake and Output: Intake & Output 02/27/18 02/28/18 03/01/18 03/02/18 11:59 11:59 11:59 11:59 Intake Total 3031 / 3031 3204 / 3204 Output Total 300 / 300 2425 / 2425 Balance 2731 / 2731 779 / 779 - Physical Exam Oriented: Normal Eyes: Normal Ear: Normal Nose: Normal Throat: Normal Respiratory: Diminished, Wheezes, Rhonchi Cardiovascular: Normal : Normal Auscultation: Bowel Sounds: Normal Tenderness: Normal Skin: Normal Musculoskeletal: Normal Psychiatric: Normal Mood Description: Calm Affect: Normal Speech Pattern: Clear, Appropriate - Laboratory and Diagnostics Result Diagrams: 03/01/18 05:47 03/01/18 05:47 Labs: 02/27/18 12:45 Blood Blood Culture - Preliminary 02/28/18 13:59 Sputum - Expectorated Sputum Sputum Culture - Preliminary 02/28/18 13:59 Sputum - Expectorated Sputum - Final Laboratory WBC 23.8 X10^3/uL (3.6-10.0) H D 03/01/18 05:47 RBC 4.32 X10^6/uL (4.7-6.0) L 03/01/18 05:47 Hgb 13.7 g/dL (13.5-18.0) 03/01/18 05:47 Hct 40.2 % (42.0-54.0) L 03/01/18 05:47 MCV 93.2 fL (80.0-100.0) 03/01/18 05:47 MCH 31.7 pg (27.0-34.0) 03/01/18 05:47 MCHC 34.0 g/dL (33.0-35.0) 03/01/18 05:47 RDW 14.4 % (11.6-16.5) 03/01/18 05:47 Plt Count 297 X10^3/uL (150.0-450.0) 03/01/18 05:47 Plt Count Comment Adequate (ADEQUATE) 03/01/18 05:47 MPV 9.1 fL (7.4-11.0) 03/01/18 05:47 Neut % (Auto) 93.7 % (42.0-75.0) H 03/01/18 05:47 Lymph % (Auto) 4.3 % (21.0-51.0) L 03/01/18 05:47 [place] % (Auto) 1.9 % (0.0-13.0) 03/01/18 05:47 Eos % (Auto) 0.0 % (0.9-2.9) L 03/01/18 05:47 Baso % (Auto) 0.1 % (0.2-1.0) L 03/01/18 05:47 Neut # (Auto) 22.3 x10^3/uL (2.2-4.8) H 03/01/18 05:47 Lymph # (Auto) 1.0 X10^3/uL (1.3-2.9) L 03/01/18 05:47 [place] # (Auto) 0.5 x10^3/uL (0.3-0.8) 03/01/18 05:47 Eos # (Auto) 0.0 x10^3/uL (0.0-0.2) 03/01/18 05:47 Baso # (Auto) 0.0 X10^3/uL (0.0-0.1) 03/01/18 05:47 Absolute Nucleated RBC 0.0 /100WBC 03/01/18 05:47 Total Counted 100 03/01/18 05:47 Neutrophils % (Manual) 91 % (39-76) H 03/01/18 05:47 Band Neutrophils % 2 % (0-10) 03/01/18 05:47 Lymphocytes % (Manual) 7 % (13-43) L 03/01/18 05:47 Plt Morphology Comment Normal (NORMAL) 03/01/18 05:47 RBC Morphology Normal (NORMAL) 03/01/18 05:47 INR Target Range - 02/27/18 12:45 INR 0.89 (0.8-1.3) 02/27/18 12:45 Sample Site Lft rad 02/27/18 13:32 ABG pH 7.420 (7.35-7.45) 02/27/18 13:32 ABG pCO2 41.0 mmHg (35.0-45.0) 02/27/18 13:32 ABG pO2 76.0 mmHg (80.0-100.0) L 02/27/18 13:32 ABG HCO3 26.6 mmol/L (22-26) H 02/27/18 13:32 ABG O2 Saturation 95.0 % (90-100) 02/27/18 13:32 ABG Base Excess 1.9 mmol/L (-2.0-2.0) 02/27/18 13:32 Kahlil Test Pos 02/27/18 13:32 A-a Gradient 22.0 mmHg 02/27/18 13:32 FiO2 21.000 02/27/18 13:32 Blood Gas Comments Eveline well gmb 02/27/18 13:32 Sodium 136 mmol/L (136-145) 03/01/18 05:47 Corrected Sodium 138 mmol/L (136-145) 03/01/18 05:47 Potassium 4.5 mmol/L (3.5-5.1) 03/01/18 05:47 Chloride 105 mmol/L (98-107) 03/01/18 05:47 Carbon Dioxide 23.4 mmol/L (21-32) 03/01/18 05:47 BUN 12 mg/dL (7-18) 03/01/18 05:47 Creatinine 0.94 mg/dL (0.70-1.30) 03/01/18 05:47 Est GFR (MDRD) Af Amer > 60 (>60) 03/01/18 05:47 Est GFR (MDRD) Non-Af > 60 (>60) 03/01/18 05:47 Glucose 200 mg/dL (65-99) H 03/01/18 05:47 Calcium 8.6 mg/dL (8.5-10.1) 03/01/18 05:47 Corrected Calcium 9.5 mg/dL (8.5-10.1) 03/01/18 05:47 Magnesium 1.8 mg/dL (1.7-2.9) 02/27/18 12:45 Total Bilirubin 0.20 mg/dL (0.2-1.0) 03/01/18 05:47 AST 16 Units/L (15-37) 03/01/18 05:47 ALT 29 Units/L (12-78) 03/01/18 05:47 Alkaline Phosphatase 93 Units/L (46-116) 03/01/18 05:47 Creatine Kinase 307 Units/L (39-308) 02/28/18 00:25 CK-MB (CK-2) 1.6 ng/mL (0-4.0) 02/28/18 00:25 CK/CKMB % Calc 0.5 % (<4) 02/28/18 00:25 Troponin I < 0.02 ng/mL (0-1.5) 02/28/18 00:25 Total Protein 6.5 g/dL (6.4-8.2) 03/01/18 05:47 Albumin 2.9 g/dL (3.4-5.0) L 03/01/18 05:47 Globulin 3.6 g/dL (2.5-4.5) 03/01/18 05:47 Albumin/Globulin Ratio 0.8 Ratio (1.1-2.1) L 03/01/18 05:47 Triglycerides 336 mg/dL (0-150) H 02/28/18 05:43 Cholesterol 170 mg/dL (0-200) 02/28/18 05:43 LDL Cholesterol, Calc 77 mg/dL (0-100) 02/28/18 05:43 HDL Cholesterol 26 mg/dL (40-60) L 02/28/18 05:43 Cholesterol/HDL Ratio 6.5 (0.0-5.0) H 02/28/18 05:43 Specimen Type Clean catch urine 02/27/18 13:12 Urine Color Yellow (YELLOW) 02/27/18 13:12 Urine Appearance Clear (CLEAR) 02/27/18 13:12 Urine pH 5.0 (5.0 - 8.0) 02/27/18 13:12 Ur Specific [place] 1.015 (1.000-1.030) 02/27/18 13:12 Urine Protein Negative (NEGATIVE) 02/27/18 13:12 Urine Glucose (UA) Negative (NEGATIVE) 02/27/18 13:12 Urine Ketones Negative (NEGATIVE) 02/27/18 13:12 Urine Occult Blood Negative (NEGATIVE) 02/27/18 13:12 Urine Nitrite Negative (NEGATIVE) 02/27/18 13:12 Urine Bilirubin Negative (NEGATIVE) 02/27/18 13:12 Urine Urobilinogen Normal (NORMAL) 02/27/18 13:12 Ur Leukocyte Esterase Negative (NEGATIVE) 02/27/18 13:12 - Plan (1) COPD exacerbation Status: Acute Plan: AM CXR, IV STEROIDS, ANTIBIOTICS, NEBS. SPUTUM CULTURE, SUPPLEMENTAL O2 PRN. BP CONTROL, CARDIAC MONITORING (2) Coronary artery disease Status: Acute Plan: HOME MEDS (3) Hypertension Status: Acute Plan: CONTINUE BP MEDICATION, CONTINUE MONITORING
[2018-03-01] MEDS: LIPITOR TAB 40 MG PO SCH (21:57)
[2018-03-02] MEDS: FORTAZ or TAZICEF VIAL INJ 1 G in NS 100 ML IV + SPIKE MINIBAG* 100 ML IV SCH (05:55)
[2018-03-02] MEDS: NS 1000 ML 1,000 ML IV SCH (05:55)
[2018-03-02 06:15] LABS: BASOPHILS # (AUTO) 0.1 X10^3/uL (0.0-0.1); BASOPHILS % (AUTO) 0.2 % (0.2-1.0); HEMATOCRIT 37.5 % (42.0-54.0); HEMOGLOBIN 12.7 g/dL (13.5-18.0); LYMPHOCYTES # (AUTO) 2.3 X10^3/uL (1.3-2.9); LYMPHOCYTES % (AUTO) 9.5 % (21.0-51.0); MEAN CORPUSCULAR HEMOGLOBIN 31.5 pg (27.0-34.0); MEAN CORPUSCULAR HGB CONC 33.9 g/dL (33.0-35.0); MEAN PLATELET VOLUME 9.2 fL (7.4-11.0); MONOCYTES # (AUTO) 1.1 x10^3/uL (0.3-0.8); MONOCYTES % (AUTO) 4.7 % (0.0-13.0); NEUTROPHILS # (AUTO) 20.5 x10^3/uL (2.2-4.8); NEUTROPHILS % (AUTO) 85.6 % (42.0-75.0); PLATELET COUNT 269 X10^3/uL (150.0-450.0); RED BLOOD COUNT 4.03 X10^6/uL (4.7-6.0); RED CELL DISTRIBUTION WIDTH 14.5 % (11.6-16.5)
[2018-03-02 06:36] LABS: ALANINE AMINOTRANSFERASE 41 Units/L (12-78); ALBUMIN 2.7 g/dL (3.4-5.0); ALKALINE PHOSPHATASE 78 Units/L (46-116); ASPARTATE AMINO TRANSFERASE 26 Units/L (15-37); BLOOD UREA NITROGEN 13 mg/dL (7-18); CALCIUM 8.3 mg/dL (8.5-10.1); CARBON DIOXIDE 25.5 mmol/L (21-32); CHLORIDE 107 mmol/L (98-107); COR CA(FOR HYPOALB) 9.3 mg/dL (8.5-10.1); COR NA(FOR HYPERGLY) 141 mmol/L (136-145); SODIUM 140 mmol/L (136-145); eGFR NON BLACK RACES > 60 (>60)
[2018-03-02 06:53] LABS: BAND NEUTROPHILS % 3 % (0-10); PLATELET MORPHOLOGY COMMENT NORMAL (NORMAL)
[2018-03-02] MEDS ORDERED: ZESTRIL TAB 20 MG ONE (07:47)
[2018-03-02] MEDS: LOPRESSOR TAB 25 MG PO SCH (08:00)
[2018-03-02] MEDS: ZESTRIL TAB 20 MG PO SCH (08:00)
[2018-03-02] MEDS: CLARITIN PO SCH (08:00)
[2018-03-02] MEDS: NORVASC TAB 10 MG PO SCH (08:00)
[2018-03-02] MEDS: ASPIRIN EC 81 MG PO SCH (08:01)
[2018-03-02] MEDS: PriLOSEC PO SCH (08:01)
[2018-03-02] MEDS: IMDUR PO SCH (08:02)
[2018-03-02] MEDS: PLAVIX PO SCH (08:02)
[2018-03-02] MEDS: ROBITUSSIN (PLAIN) PO SCH (08:02)
[2018-03-02] MEDS: NICOTINE PATCH TD SCH (08:02)
[2018-03-02] MEDS: CHECK PATCH XX SCH (08:03)
[2018-03-02] MEDS: LOVENOX INJ 40 MG SYR SC SCH (08:03)
[2018-03-02] MEDS: ZITHROMAX INJ 500 MG VIAL 500 MG in NS 250 ML IV 250 ML IV SCH (08:03)
[2018-03-02] MEDS: PULMICORT NEB TX 0.5 MG NEB SCH (09:04)
[2018-03-02] MEDS: XOPENEX 1.25 MG/3 ML NEBULE NEB SCH (09:04)
[2018-03-02 09:13] VITALS: BP 149/89
[2018-03-02] MEDS ORDERED: TYLENOL 325 MG TAB PO PRN (09:49)
== END 2018-03-02 10:50 | disposition home or self-care (01) | DRG 192 ==
LOC: ICU → MED/SURG 03-01 13:40
PROVIDERS: ADMIT Internal Medicine; ATTEND Internal Medicine
DX: R07.89 Other chest pain; I25.10 Atherosclerotic heart disease of native coronary artery without angina pectoris; I10 Essential (primary) hypertension; J44.1 Chronic obstructive pulmonary disease with (acute) exacerbation; R06.02 Shortness of breath; E11.65 Type 2 diabetes mellitus with hyperglycemia
CPT/HCPCS: 36415; 36600; 71010; 71045; 80053; 80061; 81003; 82550; 82553; 82803; 83735; 84484; 85025; 85610; 87040; 87070; 87205; 93005; 93010; 94640; A4222; G0378; J0456; J0713; J1650; J2920; J3490; J7030; J7050; J7620; J7626

== ENCOUNTER 2019-05-01 11:54 | Observation (INO) ==
[2019-05-01] MEDS ORDERED: HEPARIN SODIUM IN D5W 25,000 UNITS/500 ML BAG IV PRN (12:32)
--- NOTE | 2019-05-01 12:45 | DR.H&P ---
H&P - History & Physical for Day of: H&P Date: 05/01/19 - Chief Complaint Chief Complaint: chest pain with shortness of breath - History of Present Illness History of Present Illness: The patient is a 53-year-old white male who presents to the [facility] with complaint of chest pain and shortness of breath. States discomfort has been progressive in nature over last month. States he is having increasing discomfort since Tuesday. States that he's not been able to hold out to work or exert himself. Does state that he has to stop and rest while getting dressed. Patient complains of pain being to the left chest where he had his previous pain. Does have history 5 stents in 2017. Does continue to smoke tobacco 2.5 packs per day. Has had recent COPD exacerbation but states that has resolved. Denies leg swelling. Denies any other complaints. Does continue to take all meds as prescribed. - Past Medical History Past Medical History: Angina, COPD, Coronary Artery Disease, Diabetes, Hypertension Additional Medical History: Skin Cancer - Past Surgical History Surgical History: Angioplasty/Stents, Ortho Surgery, Other Additional Surgical History: 70% LAD, Angioplasty x 5 - Family History Family Medical History: Diabetes Mellitus, Hypertension - Social History Does patient currently use any type of tobacco product: Yes Have you used tobacco products in the last 12 months: Yes Type of Tobacco Use: Cigarettes How many years tobacco product used: 1 Packs per day or dips/chews per day: 2.5 Does any household member use tobacco: Yes Alcohol Use: None Drug Use: None Risks, benefits, and alternatives of opioids discussed: No Prescription drug monitoring program results: PDMP reviewed and no concerns identified - Medications Home Medications: FISH OILS PILLS Adverse Reaction (Uncoded 02/27/18 12:36) NAUSEA/VOMITING - Review of Systems Constitutional: Weakness, Malaise Eyes: No Symptoms Reported ENT: No Symptoms Reported Respiratory: Shortness of Breath, SOB with Excertion Cardiovascular: Chest Pain, Orthopnea Gastrointestinal: No Symptoms Reported Genitourinary: No Symptoms Reported Musculoskeletal: No Symptoms Reported Skin: No Symptoms Reported Neurological: No Symptoms Reported - Physical Exam Vital Signs: Blood Pressure [Left Arm] 139/70 Blood Pressure [Right Arm] 149/89 Oriented: Normal Eyes: Normal Ear: Normal Nose: Normal Throat: Normal Respiratory: RLL Diminished, LLL Diminished Cardiovascular: Normal : Normal Auscultation: Bowel Sounds: Normal Palpation: Normal Tenderness: Normal Skin: Normal Musculoskeletal: Normal Psychiatric: Normal Mood Description: Calm Affect: Normal Speech Pattern: Clear - Assessment/Plan (1) Chest pain Qualifiers: Ischemic chest pain type: unstable angina pectoris Status: Acute Plan: cardiac enzymes, EKG, heparin drip, transfer to [facility] in a.m. (2) Coronary artery disease Qualifiers: Coronary Disease-Associated Artery/Lesion type: [place] artery Status: Acute (3) Dyspnea Qualifiers: Dyspnea type: dyspnea on exertion Status: Acute (4) Hypertension Qualifiers: Hypertension type: essential hypertension Qualified Code(s): I10 - Essential (primary) hypertension Status: Acute Plan: Monitor blood pressure. Continue home meds. - Allergies Allergies/Adverse Reactions: Allergies Allergy/AdvReac Type Severity Reaction Status Date / Time FISH OILS PILLS AdvReac NAUSEA/VOMI Uncoded 02/27/18 12:36 TING
[2019-05-01 14:51] LABS: BASOPHILS # (AUTO) 0.1 X10^3/uL (0.0-0.1); BASOPHILS % (AUTO) 1.1 % (0.2-1.0); EOSINOPHILS # (AUTO) 0.2 x10^3/uL (0.0-0.2); EOSINOPHILS % (AUTO) 3.2 % (0.9-2.9); HEMATOCRIT 44.9 % (42.0-54.0); HEMOGLOBIN 15.3 g/dL (13.5-18.0); LYMPHOCYTES # (AUTO) 2.2 X10^3/uL (1.3-2.9); LYMPHOCYTES % (AUTO) 33.5 % (21.0-51.0); MEAN CORPUSCULAR HEMOGLOBIN 32.3 pg (27.0-34.0); MEAN CORPUSCULAR HGB CONC 34.1 g/dL (33.0-35.0); MEAN CORPUSCULAR VOLUME 94.8 fL (80.0-100.0); MEAN PLATELET VOLUME 8.2 fL (7.4-11.0); MONOCYTES # (AUTO) 0.5 x10^3/uL (0.3-0.8); MONOCYTES % (AUTO) 6.9 % (0.0-13.0); NEUTROPHILS # (AUTO) 3.7 x10^3/uL (2.2-4.8); NEUTROPHILS % (AUTO) 55.3 % (42.0-75.0); PLATELET COUNT 261 X10^3/uL (150.0-450.0); RED BLOOD COUNT 4.73 X10^6/uL (4.7-6.0); WHITE BLOOD COUNT 6.6 X10^3/uL (3.6-10.0)
[2019-05-01 15:10] LABS: BLOOD UREA NITROGEN 10 mg/dL (7-18); CALCIUM 8.7 mg/dL (8.5-10.1); CARBON DIOXIDE 28.6 mmol/L (21-32); CHLORIDE 105 mmol/L (98-107); COR NA(FOR HYPERGLY) 143 mmol/L (136-145); CREATININE 1.03 mg/dL (0.70-1.30); SODIUM 142 mmol/L (136-145); TROPONIN I < 0.02 ng/mL (0-1.5); eGFR NON BLACK RACES > 60 (>60)
[2019-05-01 15:14] LABS: ALANINE AMINOTRANSFERASE 40 Units/L (12-78); ALBUMIN 3.6 g/dL (3.4-5.0); ALKALINE PHOSPHATASE 98 Units/L (46-116); ASPARTATE AMINO TRANSFERASE 25 Units/L (15-37); CKMB % 0.4 % (<4); CREATINE KINASE 252 Units/L (39-308); CREATINE KINASE MB < 1.0 ng/mL (0-4.0); TOTAL PROTEIN 7.3 g/dL (6.4-8.2)
[2019-05-01 15:18] VITALS: BMI 29.4
[2019-05-01] MEDS ORDERED: PROVENTIL NEB TX 0.083% 2.5MG/ 3ML NEB PRN (15:24)
[2019-05-01] MEDS: ASPIRIN PO SCH (15:36)
[2019-05-01 15:37] LABS: BILIRUBIN,URINE NEGATIVE (NEGATIVE); BLOOD/HEMOGLOBIN,URINE NEGATIVE (NEGATIVE); GLUCOSE, URINE NEGATIVE (NEGATIVE); KETONES,URINE NEGATIVE (NEGATIVE); LEUKOCYTE ESTERASE ,URINE NEGATIVE (NEGATIVE); NITRITES,URINE NEGATIVE (NEGATIVE); PROTEIN,URINE NEGATIVE (NEGATIVE); UROBILINOGEN,URINE NORMAL (NORMAL)
[2019-05-01] MEDS: MORPHINE SULFATE INJ 2 MG INJ IVP PRN ×3 (15:37→22:07)
[2019-05-01 15:40] LABS: APPEARANCE,URINE CLEAR (CLEAR); COLOR,URINE YELLOW (YELLOW)
[2019-05-01] MEDS ORDERED: HEPARIN SODIUM INJ 5000 UNITS IVP ONE (16:02)
[2019-05-01] MEDS: NITRO-BID OINT 2% UD (E.R. USE ONLY) TOP SCH ×2 (16:17→20:58)
--- NOTE | 2019-05-01 16:41 | RAD ---
HISTORY: Chest pain, shortness of breath, COPD Study: Single-view of the chest Comparison: March 01, 2018 Findings: The trachea is midline. The cardiac silhouette is unremarkable. Peribronchial thickening is noted. No definite evidence of focal consolidation is appreciated. IMPRESSION: 1. Peribronchial thickening suggesting acute or chronic bronchitis. Correlate clinically. Reported By:
--- NOTE | 2019-05-01 16:49 | CT ---
CT ANGIOGRAPHY OF THE CHEST CLINICAL HISTORY: 53-year-old male with chest pain and history of COPD. Patient presents with shortness of breath. COMPARISON: None. TECHNIQUE: CT angiogram of the chest was performed following the uncomplicated administration of 80 mL Omnipaque 350 intravenous contrast as per routine pulmonary embolus protocol. Coronal and Sagittal reformats provided. MIP reformats are submitted for review. Dose reduction techniques including Automated Exposure Control (AEC) and adjustment of mA and kV were utilized. FINDINGS: No pulmonary embolus is seen. There is no thoracic aortic dissection. The heart is normal in size and there is no pericardial effusion. There is no axillary or mediastinal lymphadenopathy. Evaluation of the lung parenchyma demonstrates no pulmonary nodules, masses, or airspace opacities. Scattered paraseptal emphysematous change with mild interstitial prominence and septal thickening, consistent with history of COPD. The trachea and mainstem bronchi are patent. There is no pleural effusion or pneumothorax. Imaged upper abdomen without acute abnormality. The arteriovascular structures are within normal limits. Soft tissues are normal. The osseous structures are intact without fracture or malalignment. IMPRESSION: 1. No pulmonary embolus. 2. COPD, consistent with history. Reported By:
[2019-05-01] MEDS ORDERED: NICOTINE PATCH TD ONE (17:10)
[2019-05-01] MEDS: NICOTINE PATCH TD SCH (17:13)
[2019-05-01] MEDS: NITRO-BID OINT 2% Multi-Dose tube TD SCH (18:25)
[2019-05-01] MEDS: PULMICORT NEB TX 0.5 MG NEB SCH (21:04)
[2019-05-01] MEDS: DUONEB 0.5 MG/3 MG NEB SCH (21:04)
[2019-05-01 21:57] LABS: CKMB % 0.5 % (<4); CREATINE KINASE 193 Units/L (39-308); CREATINE KINASE MB < 1.0 ng/mL (0-4.0); TROPONIN I < 0.02 ng/mL (0-1.5)
[2019-05-02 03:20] LABS: CKMB % 0.7 % (<4); CREATINE KINASE 154 Units/L (39-308); CREATINE KINASE MB < 1.0 ng/mL (0-4.0); TROPONIN I < 0.02 ng/mL (0-1.5)
[2019-05-02] MEDS: NITRO-BID OINT 2% UD (E.R. USE ONLY) TOP SCH ×2 (03:20→08:38)
[2019-05-02] MEDS: MORPHINE SULFATE INJ 2 MG INJ IVP PRN ×3 (03:21→12:06)
[2019-05-02 05:41] LABS: CHOL/HDL RATIO 4.7 (0.0-5.0)
[2019-05-02] MEDS ORDERED: HEPARIN SODIUM INJ 5000 UNITS IVP ONE (05:57)
[2019-05-02] MEDS ORDERED: HEPARIN SODIUM INJ 5000 UNITS ONE (05:59)
[2019-05-02] MEDS ORDERED: AFLURIA II4 or FLUARIX II4 IM ONE ×2 (08:17→11:57)
[2019-05-02] MEDS ORDERED: PREVNAR 13 IM ONE (08:17)
[2019-05-02] MEDS: ASPIRIN PO SCH (08:37)
[2019-05-02] MEDS: NICOTINE PATCH TD SCH (08:38)
[2019-05-02] MEDS: PULMICORT NEB TX 0.5 MG NEB SCH (09:15)
[2019-05-02] MEDS: DUONEB 0.5 MG/3 MG NEB SCH (09:15)
[2019-05-02 12:14] VITALS: BP 128/61
--- NOTE | 2019-05-28 23:37 | PCM.DCPLAN ---
Discharge Plan - Discharge Plan Hospital Course: The patient is a 53-year-old white male who presents to the [facility] with complaint of chest pain and shortness of breath. States discomfort has been progressive in nature over last month. States he is having increasing discomfort since Tuesday. States that he's not been able to hold out to work or exert himself. Does state that he has to stop and rest while getting dressed. Patient complains of pain being to the left chest where he had his previous pain. Does have history 5 stents in 2017. Does continue to smoke tobacco 2.5 packs per day. Has had recent COPD exacerbation but states that has resolved. Denies leg swelling. Denies any other complaints. Does continue to take all meds as prescribed. Serial cardiac enzymes unremarkable. Patient transferred to [facility] for further cardiac work up. Disposition: [facility]-TRM HOSP Condition: Stable Health Concerns: Post Hospitalization: new medications and changes needed to prevent readmission or further decline. Pt educated and given instructions on all concerns. Plan of Treatment: Continue with present treatment and follow up plan. Pt is to keep follow up appointment as instructed and take medications as ordered. Assessment: See problem list Prescriptions: No Action albuterol sulfate 90 mcg/actuation Hfa Aerosol Inhaler 2 puff INHALATION Q4-6H PRN amlodipine 10 MG tablet 1 tab PO DAILY aspirin [Aspir-Low] 81 MG tablet,delayed release (DR/EC) 1 tab PO DAILY atorvastatin 80 MG tablet 80 mg PO HS [id number]-bshguaynumcbl-zhgi 1 TAB tablet 1 tab PO BID clopidogrel [Plavix] 75 MG tablet 1 tab PO DAILY isosorbide mononitrate 30 mg tablet extended release 24 hr 1 tab PO DAILY lisinopril 20 MG tablet 1 tab PO DAILY metoprolol tartrate 25 mg tablet 1 tab PO BID omeprazole 40 MG capsule,delayed release(DR/EC) 40 mg PO DAILY - Orders to Discharge Patient Discharge Orders: Discharge by Transfer to Outside Facility (Routine); Ordered 05/02/19 Ordered By: COLE RILEY - Follow ups/Referrals Follow ups/Referrals: COLE RILEY [Primary Care Provider] - 1 WEEK - Instructions Forms: Excuse From Work or School, Patient Portal Print Language: MALAY
== END 2019-05-02 12:15 | disposition short-term general hospital (02) ==
LOC: MED/SURG → ICU 14:38
PROVIDERS: ADMIT Internal Medicine; ATTEND Internal Medicine
DX: I10 Essential (primary) hypertension; R06.02 Shortness of breath; R07.89 Other chest pain; J44.9 Chronic obstructive pulmonary disease, unspecified; I25.10 Atherosclerotic heart disease of native coronary artery without angina pectoris; E11.65 Type 2 diabetes mellitus with hyperglycemia; R94.31 Abnormal electrocardiogram [ECG] [EKG]; R79.1 Abnormal coagulation profile; Z23 Encounter for immunization
CPT/HCPCS: 36415; 71010; 71045; 71275; 80053; 80061; 81003; 82550; 82553; 83735; 84484; 85025; 85378; 85610; 85730; 90674; 90686; 93005; 94640; 96372; 96374; A4216; A4222; 90670; G0378; J1644; J2270; J7620; J7626

== ENCOUNTER 2020-04-01 16:43 | Observation (INO) ==
--- NOTE | 2020-04-01 17:22 | DR.H&P ---
H&P - History & Physical for Day of: H&P Date: 04/01/20 - Chief Complaint Chief Complaint: Chest Pain - History of Present Illness History of Present Illness: The patient is a 54-year-old white male who presents to [facility] with complaint left chest pain. Patient has history of CAD with CABG x 19 April 2019. States pain started last night to left chest that radiates through to the back. States he has had no improvement with pain since started. Does have some dyspnea with pain. States pain is similiar to before with blockages. Has decreased tobacco to 1 ppd from 3 ppd. Patient's core placer is Dr Marshall Hansen [place], [place]. - Past Medical History Past Medical History: Angina, COPD, Coronary Artery Disease, Diabetes, Hypertension Additional Medical History: Skin Cancer - Past Surgical History Surgical History: Angioplasty/Stents Additional Surgical History: 70% LAD, Angioplasty x 5 - Family History Family Medical History: Diabetes Mellitus, Hypertension - Social History Does patient currently use any type of tobacco product: Yes (1PPD) Have you used tobacco products in the last 12 months: Yes Type of Tobacco Use: Cigarettes Does any household member use tobacco: No Alcohol Use: None Drug Use: None Risks, benefits, and alternatives of opioids discussed: No Prescription drug monitoring program results: PDMP reviewed and no concerns identified - Medications Home Medications: FISH OILS PILLS Adverse Reaction (Uncoded 02/27/18 12:36) NAUSEA/VOMITING - Review of Systems Constitutional: Weakness Eyes: No Symptoms Reported ENT: No Symptoms Reported Respiratory: No Symptoms Reported Cardiovascular: Chest Pain Gastrointestinal: No Symptoms Reported Genitourinary: No Symptoms Reported Musculoskeletal: No Symptoms Reported Skin: No Symptoms Reported Neurological: No Symptoms Reported - Physical Exam Vital Signs: Blood Pressure [Left Arm] 128/61 Oriented: Normal Eyes: Normal Ear: Normal Nose: Normal Throat: Normal Respiratory: Clear Throughout Cardiovascular: Normal : Normal Auscultation: Bowel Sounds: Normal Palpation: Normal Tenderness: Normal Skin: Normal Musculoskeletal: Normal Psychiatric: Normal Mood Description: Calm Affect: Normal Speech Pattern: Clear - Assessment/Plan (1) Chest pain Qualifiers: Ischemic chest pain type: unstable angina pectoris Status: Acute Plan: Serial EKGs, Cardiac Enzymes. Telemetry. Lovenox 40mg SQ BID (2) Coronary artery disease Qualifiers: Coronary Disease-Associated Artery/Lesion type: [place] artery Status: Acute Plan: As above (3) Diastolic heart failure Qualifiers: Heart failure chronicity: chronic Qualified Code(s): I50.32 - Chronic diastolic (congestive) heart failure Status: Acute - Review H&P Reviewed: Yes Patient was examined?: Yes - Allergies Allergies/Adverse Reactions: Allergies Allergy/AdvReac Type Severity Reaction Status Date / Time FISH OILS PILLS AdvReac NAUSEA/VOMI Uncoded 02/27/18 12:36 LUCAS
--- NOTE | 2020-04-01 18:46 | RAD ---
HISTORY:Chest painStudy: Single view chestComparison:NoneFindings:Sternotomy changes are present post CABG. No infiltrate, effusion, or pneumothorax identified .Cardiac and mediastinal contours are within normal limits .The soft tissues are intact .IMPRESSION:1. No acute cardiopulmonary abnormality.Electronically signed by: KAREN ARTIS (Apr 01, 2020 18:46:07)
[2020-04-01 19:06] LABS: BASOPHILS # (AUTO) 0.2 X10^3/uL (0.0-0.1); BASOPHILS % (AUTO) 2.7 % (0.2-1.0); EOSINOPHILS # (AUTO) 0.2 x10^3/uL (0.0-0.2); EOSINOPHILS % (AUTO) 2.3 % (0.9-2.9); HEMATOCRIT 43.2 % (42.0-54.0); HEMOGLOBIN 14.8 g/dL (13.5-18.0); LYMPHOCYTES # (AUTO) 1.9 X10^3/uL (1.3-2.9); LYMPHOCYTES % (AUTO) 21.9 % (21.0-51.0); MEAN CORPUSCULAR HEMOGLOBIN 31.2 pg (27.0-34.0); MEAN CORPUSCULAR HGB CONC 34.4 g/dL (33.0-35.0); MEAN CORPUSCULAR VOLUME 90.6 fL (80.0-100.0); MEAN PLATELET VOLUME 8.7 fL (7.4-11.0); MONOCYTES # (AUTO) 0.6 x10^3/uL (0.3-0.8); MONOCYTES % (AUTO) 6.7 % (0.0-13.0); NEUTROPHILS # (AUTO) 5.8 x10^3/uL (2.2-4.8); NEUTROPHILS % (AUTO) 66.4 % (42.0-75.0); PLATELET COUNT 272 X10^3/uL (150.0-450.0); RED BLOOD COUNT 4.77 X10^6/uL (4.7-6.0); RED CELL DISTRIBUTION WIDTH 13.5 % (11.6-16.5); WHITE BLOOD COUNT 8.8 X10^3/uL (3.6-10.0)
[2020-04-01 19:27] LABS: BLOOD UREA NITROGEN 11 mg/dL (7-18); CARBON DIOXIDE 26.6 mmol/L (21-32); CHLORIDE 102 mmol/L (98-107); COR NA(FOR HYPERGLY) 139 mmol/L (136-145); CREATININE 1.17 mg/dL (0.70-1.30); SODIUM 138 mmol/L (136-145); TROPONIN I < 0.02 ng/mL (0-1.5); eGFR NON BLACK RACES > 60 (>60)
[2020-04-01 19:31] LABS: ALANINE AMINOTRANSFERASE 41 Units/L (12-78); ALBUMIN 3.5 g/dL (3.4-5.0); ALKALINE PHOSPHATASE 117 Units/L (46-116); ASPARTATE AMINO TRANSFERASE 28 Units/L (15-37); CKMB % 0.7 % (<4); CREATINE KINASE 328 Units/L (39-308); CREATINE KINASE MB 2.4 ng/mL (0-4.0); MAGNESIUM 1.9 mg/dL (1.7-2.9); TOTAL PROTEIN 7.2 g/dL (6.4-8.2)
[2020-04-01 20:35] VITALS: BMI 31.8
[2020-04-01] MEDS: NICOTINE PATCH TD SCH (21:38)
[2020-04-01] MEDS: LOVENOX INJ 40 MG SYR SC SCH (21:38)
[2020-04-02 00:06] LABS: CKMB % 0.7 % (<4); CREATINE KINASE 334 Units/L (39-308); CREATINE KINASE MB 2.4 ng/mL (0-4.0); TROPONIN I < 0.02 ng/mL (0-1.5)
[2020-04-02 06:39] LABS: CHOLESTEROL 154 mg/dL (0-200); CKMB % 0.6 % (<4); CREATINE KINASE 348 Units/L (39-308); CREATINE KINASE MB 2.2 ng/mL (0-4.0); HDL CHOLESTEROL 22 mg/dL (40-60); TRIGLYCERIDES 152 mg/dL (0-150); TROPONIN I < 0.02 ng/mL (0-1.5)
[2020-04-02] MEDS: NICOTINE PATCH TD SCH (09:17)
[2020-04-02] MEDS: LOVENOX INJ 40 MG SYR SC SCH ×2 (09:18→20:29)
[2020-04-02] MEDS ORDERED: ZANAFLEX PO PRN (18:31)
[2020-04-02] MEDS ORDERED: MORPHINE SULFATE INJ 2 MG INJ IVP PRN (18:56)
[2020-04-02] MEDS ORDERED: ATIVAN TAB 0.5 MG PO PRN (18:57)
[2020-04-02] MEDS ORDERED: SINGULAIR TAB 10 MG PO SCH (19:00)
[2020-04-02 20:23] VITALS: BP 142/72
[2020-04-02] MEDS ORDERED: ZESTRIL TAB 20 MG ONE (20:25)
[2020-04-02] MEDS: ZESTRIL TAB 20 MG PO SCH ×2 (20:27→20:29)
[2020-04-02] MEDS ORDERED: NORVASC TAB 10 MG PO SCH (21:00)
[2020-04-02] MEDS ORDERED: LIPITOR TAB 40 MG PO SCH (21:00)
[2020-04-02] MEDS ORDERED: LOPRESSOR TAB 25 MG PO SCH (21:00)
[2020-04-03] MEDS ORDERED: IMDUR PO SCH (09:00)
--- NOTE | 2020-04-09 08:31 | DR.CARTERD ---
- Discharge Summary for: Discharge Summary for Date of:: 04/02/20 - Admission Date Date of Admission: 04/01/20 - Admission Diagnoses Admission Diagnosis: Chest Pain, CAD, Diastolic heart failure - Discharge Date Discharge Date: 04/02/20 - Discharge Diagnoses Discharge Diagnosis: Chest pain CAD HTN Chronic Diastolic heart failure Tobacco Use - Hospital Course Hospital Course: The patient is a 54-year-old white male who presents to [facility] with complaint left chest pain. Patient has history of CAD with CABG x 19 April 2019. States pain started last night to left chest that radiates through to the back. States he has had no improvement with pain since started. Does have some dyspnea with pain. States pain is similiar to before with blockages. Has decreased tobacco to 1 ppd from 3 ppd. Patient's compliance specialist is Dr Marshall Hansen [place], [place].Patient was transferred to [facility] for further care. - Discharge Medications Discharge Medications: Home Medication List vceopuqkqix-yzmlcmrjx-lxdeufnw [Trelegy Ellipta] 1 inh INHALATION DAILY 04/01/20 [History] furosemide [Lasix] 20 mg PO DAILY 04/01/20 [History] montelukast 10 mg PO DAILY 04/01/20 [History] spironolactone 25 mg PO DAILY 04/01/20 [History] tizanidine 8 mg PO TID PRN 04/01/20 [History] Prescriptions: - Discharge Disposition Discharge Disposition: [facility] transfer - Discharge Diagnoses Health Concerns: Post Hospitalization: new medications and changes needed to prevent readmission or further decline. Pt educated and given instructions on all concerns. Plan of Treatment: Continue with present treatment and follow up plan. Pt is to keep follow up appointment as instructed and take medications as ordered.
== END 2020-04-02 23:07 | disposition critical access hospital (66) ==
LOC: OBS → MED/SURG 19:31
PROVIDERS: ADMIT Internal Medicine; ATTEND Internal Medicine

== ENCOUNTER 2022-07-10 22:55 | Observation (INO) ==
--- NOTE | 2022-07-10 23:58 | DR.DIZZY ---
HPI Time seen Time Seen by Provider: 07/10/22 23:57 PCP Primary Care Physician: ROSEMARY Complaint Chief Complaint:: PT AMBULATORY IN ED WITH C/O NOT BEING ABLE TO EAT, NAUSEATED, DIZZY, COUGH AND NO ENERGY FOR APPROX 10 DAYS. 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 OFFICE CALLED HIM TO CHECK ON HIM TUESDAY AND HE WAS WORSE. WAS TOLD TO COME TO ER BUT DIDN'T D/T HE WANTED TO HAVE MILADYS WITH HIS KIDS. COVID-19 Coronavirus risk:travel/contact w/high risk person: No Has patient experienced Coronavirus symptoms: Yes Coronavirus symptoms experienced: Coughing and Shortness of Breath Source History Provided: Patient Mode of Arrival Mode of Arrival: Ambulatory Timing Onset of Chief Complaint: 07/01/22 PMH PMH Past Medical History: Yes Past Medical History: Angina, COPD, Coronary Artery Disease, Diabetes, Dyslipidemia, GERD and Hypertension Past Surgical History: Yes Surgical History: Angioplasty/Stents, CABG/Valve Surgery and Ortho Surgery Family History History of Family Medical Conditions: Yes Family Medical History: Diabetes Mellitus and Hypertension Social History Does patient currently use any type of tobacco product: Yes Have you used tobacco products in the last 12 months: Yes Type of Tobacco Use: Cigarettes Does any household member use tobacco: No Alcohol Use: None Do you use any recreational Drugs:: No Lives With: Spouse Lives Where: Home Travel Risk Coronavirus risk:travel/contact w/high risk person: No Has patient experienced Coronavirus symptoms: Yes Coronavirus symptoms experienced: Coughing and Shortness of Breath Infectious screening In the last 2 months have you had wt loss of >10#?: NO Have you had fever, night sweats or hemotysis?: No Have you traveled outside the country in the last 6 months?: No Isolation: Droplet PE Vital Signs Vitals: Temperature 98.5 F Pulse Rate [Apical] 98 Pulse Rate 99 Respiratory Rate 18 Blood Pressure [Left Arm] 98/55 Blood Pressure [Right Arm] 142/72 Blood Pressure 95/63 O2 Sat by Pulse Oximetry 90 ROR Labs Reviewed Laboratory Results Reviewed?: Yes Result Diagrams: 07/13/22 05:25 07/13/22 05:25 Laboratory: 07/11/22 01:45 Blood Blood Culture - Final 07/11/22 01:40 Blood Blood Culture - Final WBC 17.8 X10^3/uL (3.6-10.0) H 07/11/22 00:22 RBC 4.01 X10^6/uL (4.7-6.0) L 07/11/22 00:22 Hgb 12.0 g/dL (13.5-18.0) L 07/11/22 00:22 Hct 35.5 % (42.0-54.0) L 07/11/22 00:22 MCV 88.5 fL (80.0-100.0) 07/11/22 00: MCH 29.9 pg (27.0-34.0) 07/11/22 00: MCHC 33.7 g/dL (33.0-35.0) 07/11/22 00: RDW 13.9 % (11.6-16.5) 07/11/22 00: Plt Count 565 X10^3/uL (150.0-450.0) H 07/11/22 00: Plt Count Comment Increased (ADEQUATE) 07/11/22 00: MPV 8.7 fL (7.4-11.0) 07/11/22 00:22 Neut % (Auto) 80.4 % (42.0-75.0) H 07/11/22 00:22 Lymph % (Auto) 11.4 % (21.0-51.0) L 07/11/22 00:22 [place] % (Auto) 7.1 % (0.0-13.0) 07/11/22 00:22 Eos % (Auto) 0.9 % (0.9-2.9) 07/11/22 00: Baso % (Auto) 0.2 % (0.2-1.0) 07/11/22 00:22 Neut # (Auto) 14.3 x10^3/uL (2.2-4.8) H 07/11/22 00:22 Lymph # (Auto) 2.0 X10^3/uL (1.3-2.9) 07/11/22 00:22 [place] # (Auto) 1.3 x10^3/uL (0.3-0.8) H 07/11/22 00:22 Eos # (Auto) 0.2 x10^3/uL (0.0-0.2) 07/11/22 00:22 Baso # (Auto) 0.0 X10^3/uL (0.0-0.1) 07/11/22 00: Absolute Nucleated RBC 0.1 /100WBC 07/11/22 00: Total Counted 100 07/11/22 00: Neutrophils % (Manual) 69 % (39-76) 07/11/22 00: Band Neutrophils % 6 % (0-10) 07/11/22 00: Lymphocytes % (Manual) 15 % (13-43) 07/11/22 00: Monocytes % (Manual) 5 % (4-9) 07/11/22 00: Eosinophils % (Manual) 2 % (0-6) 07/11/22: Metamyelocytes % 3 07/11/22 00: Plt Morphology Comment Normal (NORMAL) 07/11/22 00: RBC Morphology Normal (NORMAL) 07/11/22 00: Sodium 136 mmol/L (136-145) 07/11/22 00: Corrected Sodium 137 mmol/L (136-145) 07/11/22 00: Potassium 3.9 mmol/L (3.5-5.1) 07/11/22 00: Chloride 97 mmol/L (98-107) L 07/11/22 00: Carbon Dioxide 26.4 mmol/L (21-32) 07/11/22 00:22 BUN 54 mg/dL (7-18) H 07/11/22 00:22 Creatinine 3.73 mg/dL (0.70-1.30) H 07/11/22 00:22 Est GFR (MDRD) Af Amer 22 (>60) L 07/11/22 00: Est GFR (MDRD) Non-Af 18 (>60) L 07/11/22 00: Glucose 143 mg/dL (65-99) H 07/11/22 00:22 Calcium 8.7 mg/dL (8.5-10.1) 07/11/22 00:22 Corrected Calcium 9.7 mg/dL (8.5-10.1) 07/11/22 00: Total Bilirubin 0.50 mg/dL (0.2-1.0) 07/11/22 00:22 AST 48 Units/L (15-37) H 07/11/22 00:22 ALT 33 Units/L (12-78) 07/11/22 00:22 Alkaline Phosphatase 59 Units/L (46-116) 07/11/22 00:22 Creatine Kinase 996 Units/L (39-308) H 07/11/22 00:22 Troponin I High Sens 14.1 ng/L (4.0-60.0) 07/11/22 00:22 B-Natriuretic Peptide 25.0 pg/mL (0-79) 07/11/22 00:22 Total Protein 8.0 g/dL (6.4-8.2) 07/11/22 00:22 Albumin 2.8 g/dL (3.4-5.0) L 07/11/22 00:22 Globulin 5.2 g/dL (2.5-4.5) H 07/11/22 00:22 Albumin/Globulin Ratio 0.5 Ratio (1.1-2.1) L 07/11/22 00:22 SARS-CoV-2 (PCR) Negative (NEGATIVE) 07/11/22 01:00 Influenza Type A (PCR) Negative (NEGATIVE) 07/11/22 01:00 Influenza Type B (PCR) Negative (NEGATIVE) 07/11/22 01:00 RSV (PCR) Negative (NEGATIVE) 07/11/22 01:00 XRAY XRAY Interpreted by: Radiologist and Self EKG Rate: 101 [place]: RAD Rhythm: NSR Block: None Hypertrophy: None ST: Normal Opioid Opioid Risk Tool Age (Thomas box if 16-45): No History of Preadolescent Sexual Abuse: No Total: 0 Total Score Risk Category: Low Risk Copyright: Ho SCHUSTER predicting aberrant behaviors Discharge Plan Diagnosis Discharge Problem: Chest pain, SOB (shortness of breath), COPD exacerbation, Acute dehydration, Rhabdomyolysis Discharge Plan Patient Disposition: ADMITTED INPATIENT Condition: Stable Orders to Discharge Patient Discharge Orders: Discharge (Routine); Ordered 07/13/22 Ordered By: JONAH KENDALL
[2022-07-11] MEDS ORDERED: DUONEB 0.5 MG/3 MG (3 mL) NEB ONE ×2 (00:15→00:24)
--- NOTE | 2022-07-11 00:29 | EKG ---
Test Reason : CHEST PAIN Blood Pressure : */* mmHG Vent. Rate : 101 BPM Atrial Rate : 101 BPM P-R Int : 130 ms QRS Dur : 100 ms QT Int : 344 ms P-R-T Axes : 53 90 53 degrees QTc Int : 446 ms Sinus tachycardia Rightward axis Borderline ECG No previous ECGs available [id number] Confirmed by Christiano Alonso ([id number]) on 07/11/2022 9:23:32 AM Referred By: Confirmed By: Christiano Alonso
[2022-07-11 00:37] LABS: BASOPHILS % (AUTO) 0.2 % (0.2-1.0); EOSINOPHILS # (AUTO) 0.2 x10^3/uL (0.0-0.2); EOSINOPHILS % (AUTO) 0.9 % (0.9-2.9); HEMATOCRIT 35.5 % (42.0-54.0); LYMPHOCYTES % (AUTO) 11.4 % (21.0-51.0); MEAN CORPUSCULAR HEMOGLOBIN 29.9 pg (27.0-34.0); MEAN CORPUSCULAR HGB CONC 33.7 g/dL (33.0-35.0); MEAN CORPUSCULAR VOLUME 88.5 fL (80.0-100.0); MEAN PLATELET VOLUME 8.7 fL (7.4-11.0); MONOCYTES # (AUTO) 1.3 x10^3/uL (0.3-0.8); MONOCYTES % (AUTO) 7.1 % (0.0-13.0); NEUTROPHILS # (AUTO) 14.3 x10^3/uL (2.2-4.8); NEUTROPHILS % (AUTO) 80.4 % (42.0-75.0); RED BLOOD COUNT 4.01 X10^6/uL (4.7-6.0); RED CELL DISTRIBUTION WIDTH 13.9 % (11.6-16.5); WHITE BLOOD COUNT 17.8 X10^3/uL (3.6-10.0)
[2022-07-11 00:58] LABS: BAND NEUTROPHILS % 6 % (0-10); METAMYELOCYTES % 3
[2022-07-11 00:59] LABS: PLATELET MORPHOLOGY COMMENT NORMAL (NORMAL)
[2022-07-11 01:06] LABS: ALBUMIN 2.8 g/dL (3.4-5.0); CALCIUM 8.7 mg/dL (8.5-10.1); CARBON DIOXIDE 26.4 mmol/L (21-32); COR CA(FOR HYPOALB) 9.7 mg/dL (8.5-10.1); CREATININE 3.73 mg/dL (0.70-1.30)
[2022-07-11] MEDS ORDERED: SOLU-Medrol 125 MG VIAL ONE (01:34)
[2022-07-11] MEDS ORDERED: ROCEPHIN VIAL 1 GRAM 1 G in NS 100 ML IV 100 ML IV ONE (01:41)
[2022-07-11] MEDS ORDERED: SOLU-Medrol 125 MG VIAL IVP ONE (01:45)
[2022-07-11] MEDS ORDERED: NS 100 ML IV 100 ML ONE (01:54)
[2022-07-11] MEDS ORDERED: NS 1,000 ML IV 1,000 ML ONE (01:54)
[2022-07-11] MEDS ORDERED: ROCEPHIN VIAL 1 GRAM ONE ×2 (01:54→07:32)
[2022-07-11] MEDS: NS 1,000 ML IV 1,000 ML IV SCH ×2 (02:01→15:47)
[2022-07-11 02:54] VITALS: BMI 28.2
[2022-07-11] MEDS: DUONEB 0.5 MG/3 MG (3 mL) NEB SCH ×3 (06:01→17:18)
--- NOTE | 2022-07-11 06:14 | RAD ---
PROCEDURE: Chest X-ray 1 View .HISTORY: Nausea, dizziness, and malaise with weakness.TECHNIQUE: AP portable upright done at 12:43 a.m..COMPARISON: 02/26/2021.TECHNICAL QUALITY: Satisfactory .FINDINGS:Normal size heart .Mediastinum and hilar regions show no masses or lymphadenopathy .Normal central vascularity .No pulmonary consolidation, masses, pleural fluid, or pneumothorax .No acute bony abnormality .IMPRESSION:No active cardiopulmonary disease .Electronically signed by: Ramiro Fernandez (Jul 11, 2022 06:12:32)
[2022-07-11 06:23] LABS: BASOPHILS # (AUTO) 0.2 X10^3/uL (0.0-0.1); EOSINOPHILS # (AUTO) 0.1 x10^3/uL (0.0-0.2); EOSINOPHILS % (AUTO) 0.3 % (0.9-2.9); HEMATOCRIT 34.3 % (42.0-54.0); HEMOGLOBIN 11.5 g/dL (13.5-18.0); LYMPHOCYTES # (AUTO) 1.2 X10^3/uL (1.3-2.9); LYMPHOCYTES % (AUTO) 7.2 % (21.0-51.0); MEAN CORPUSCULAR HEMOGLOBIN 29.8 pg (27.0-34.0); MEAN CORPUSCULAR HGB CONC 33.4 g/dL (33.0-35.0); MEAN CORPUSCULAR VOLUME 89.1 fL (80.0-100.0); MEAN PLATELET VOLUME 8.7 fL (7.4-11.0); MONOCYTES # (AUTO) 0.4 x10^3/uL (0.3-0.8); MONOCYTES % (AUTO) 2.1 % (0.0-13.0); NEUTROPHILS # (AUTO) 15.6 x10^3/uL (2.2-4.8); NEUTROPHILS % (AUTO) 89.4 % (42.0-75.0); RED BLOOD COUNT 3.85 X10^6/uL (4.7-6.0); RED CELL DISTRIBUTION WIDTH 13.9 % (11.6-16.5); WHITE BLOOD COUNT 17.4 X10^3/uL (3.6-10.0)
[2022-07-11 07:02] LABS: ALBUMIN 2.6 g/dL (3.4-5.0); CALCIUM 8.6 mg/dL (8.5-10.1); CARBON DIOXIDE 23.3 mmol/L (21-32); COR CA(FOR HYPOALB) 9.7 mg/dL (8.5-10.1); CREATININE 3.27 mg/dL (0.70-1.30); TOTAL PROTEIN 7.7 g/dL (6.4-8.2)
[2022-07-11] MEDS ORDERED: NS 50 ML IV 0 ML IV ONE (07:33)
--- NOTE | 2022-07-11 13:55 | DR.H&P ---
H&P History & Physical for Day of: H&P Date: 07/11/22 Chief Complaint Chief Complaint: Shortness of breath Allergies Allergies Allergy/AdvReac Type Severity Reaction Status Date / Time FISH OILS PILLS AdvReac NAUSEA/VOMI Uncoded 02/27/18 12:36 TING History of Present Illness History of Present Illness: This is a 57-year-old white male who presented to the emergency department after developing worsening COPD exacerbation with shortness of breath. He was seen by his primary care physician and treated for 10 days ago with outpatient antibiotics and he has not been getting much better he reports. He went to spend [place] with his kids so he elected to stay to the hospital but unfortunately for him he continued to get worse and when he spoke to his primary care physician's office they told him to come out to the emergency department for further evaluation and treatment. Patient is found to be ill-appearing mildly hypoxic but he is able to ambulate in the emergency department. He is found to have dehydration and rhabdomyolysis as well along with COPD exacerbation. Because of this we elected to go ahead and admitting as a observation status and started on IV fluid along with IV antibiotics, jet nebs and IV steroids. Past Medical History Past Medical History: Angina, COPD, Coronary Artery Disease, Diabetes, Dyslipidemia, GERD and Hypertension Additional Medical History: Skin Cancer Past Surgical History Surgical History: CABG/Valve Surgery and Ortho Surgery Additional Surgical History: 70% LAD, Angioplasty x 5 Family History Family Medical History: Diabetes Mellitus and Hypertension Social History Does patient currently use any type of tobacco product: Yes Have you used tobacco products in the last 12 months: Yes Type of Tobacco Use: Cigarettes How many years tobacco product used: 45 Does any household member use tobacco: No Alcohol Use: Occasionally Drug Use: None Medications Home Medications: FISH OILS PILLS Adverse Reaction (Uncoded 02/27/18 12:36) NAUSEA/VOMITING CONTINUE taking the following medications albuterol sulfate 90 mcg/actuation aerosol inhaler 2 inh inhalation PRN PRN 07/10/22 [History] doxepin 50 mg capsule 100 cap PO QHS 07/10/22 [History] fenofibrate micronized 200 mg capsule 1 cap PO QPM 07/10/22 [History] fluticasone fur. 100 mcg-umeclid 62.5 mcg-vilant 25 mcg inhalat.powder (Trelegy Ellipta) 1 inh inhalation QAM 07/10/22 [History] trazodone 50 mg tablet 2 tab PO QPM 07/10/22 [History] Labs Result Diagrams: 07/11/22 06:05 07/11/22 06:05 Labs: Laboratory WBC 17.4 X10^3/uL (3.6-10.0) H 07/11/22 06:05 RBC 3.85 X10^6/uL (4.7-6.0) L 07/11/22 06:05 Hgb 11.5 g/dL (13.5-18.0) L 07/11/22 06:05 Hct 34.3 % (42.0-54.0) L 07/11/22 06:05 MCV 89.1 fL (80.0-100.0) 07/11/22 06:05 MCH 29.8 pg (27.0-34.0) 07/11/22 06:05 MCHC 33.4 g/dL (33.0-35.0) 07/11/22 06:05 RDW 13.9 % (11.6-16.5) 07/11/22 06:05 Plt Count 506 X10^3/uL (150.0-450.0) H 07/11/22 06:05 Plt Count Comment Increased (ADEQUATE) 07/11/22 00:22 MPV 8.7 fL (7.4-11.0) 07/11/22 06:05 Neut % (Auto) 89.4 % (42.0-75.0) H 07/11/22 06:05 Lymph % (Auto) 7.2 % (21.0-51.0) L 07/11/22 06:05 [place] % (Auto) 2.1 % (0.0-13.0) 07/11/22 06:05 Eos % (Auto) 0.3 % (0.9-2.9) L 07/11/22 06:05 Baso % (Auto) 1.0 % (0.2-1.0) 07/11/22 06:05 Neut # (Auto) 15.6 x10^3/uL (2.2-4.8) H 07/11/22 06:05 Lymph # (Auto) 1.2 X10^3/uL (1.3-2.9) L 07/11/22 06:05 [place] # (Auto) 0.4 x10^3/uL (0.3-0.8) 07/11/22 06:05 Eos # (Auto) 0.1 x10^3/uL (0.0-0.2) 07/11/22 06:05 Baso # (Auto) 0.2 X10^3/uL (0.0-0.1) H 07/11/22 06:05 Absolute Nucleated RBC 0.0 /100WBC 07/11/22 06:05 Total Counted 100 07/11/22 00:22 Neutrophils % (Manual) 69 % (39-76) 07/11/22 00:22 Band Neutrophils % 6 % (0-10) 07/11/22 00:22 Lymphocytes % (Manual) 15 % (13-43) 07/11/22 00:22 Monocytes % (Manual) 5 % (4-9) 07/11/22 00:22 Eosinophils % (Manual) 2 % (0-6) 07/11/22 00:22 Metamyelocytes % 3 07/11/22 00:22 Plt Morphology Comment Normal (NORMAL) 07/11/22 00:22 RBC Morphology Normal (NORMAL) 07/11/22 00:22 Sodium 134 mmol/L (136-145) L 07/11/22 06:05 Corrected Sodium 136 mmol/L (136-145) 07/11/22 06:05 Potassium 4.7 mmol/L (3.5-5.1) 07/11/22 06:05 Chloride 98 mmol/L (98-107) 07/11/22 06:05 Carbon Dioxide 23.3 mmol/L (21-32) 07/11/22 06:05 BUN 51 mg/dL (7-18) H 07/11/22 06:05 Creatinine 3.27 mg/dL (0.70-1.30) H 07/11/22 06:05 Est GFR (MDRD) Af Amer 25 (>60) L 07/11/22 06:05 Est GFR (MDRD) Non-Af 21 (>60) L 07/11/22 06:05 Glucose 192 mg/dL (65-99) H 07/11/22 06:05 Calcium 8.6 mg/dL (8.5-10.1) 07/11/22 06:05 Corrected Calcium 9.7 mg/dL (8.5-10.1) 07/11/22 06:05 Total Bilirubin 0.40 mg/dL (0.2-1.0) 07/11/22 06:05 AST 41 Units/L (15-37) H 07/11/22 06:05 ALT 31 Units/L (12-78) 07/11/22 06:05 Alkaline Phosphatase 56 Units/L (46-116) 07/11/22 06:05 Creatine Kinase 799 Units/L (39-308) H 07/11/22 12:35 Troponin I High Sens 11.0 ng/L (4.0-60.0) 07/11/22 12:35 B-Natriuretic Peptide 25.0 pg/mL (0-79) 07/11/22 00:22 Total Protein 7.7 g/dL (6.4-8.2) 07/11/22 06:05 Albumin 2.6 g/dL (3.4-5.0) L 07/11/22 06:05 Globulin 5.1 g/dL (2.5-4.5) H 07/11/22 06:05 Albumin/Globulin Ratio 0.5 Ratio (1.1-2.1) L 07/11/22 06:05 SARS-CoV-2 (PCR) Negative (NEGATIVE) 07/11/22 01:00 Influenza Type A (PCR) Negative (NEGATIVE) 07/11/22 01:00 Influenza Type B (PCR) Negative (NEGATIVE) 07/11/22 01:00 RSV (PCR) Negative (NEGATIVE) 07/11/22 01:00 Review of Systems Constitutional: Weakness Eyes: No Symptoms Reported ENT: Nose Congestion Respiratory: Cough, Shortness of Breath, SOB with Excertion, Sputum and Wheezing Cardiovascular: Chest Pain Gastrointestinal: No Symptoms Reported Genitourinary: No Symptoms Reported Musculoskeletal: Arm Pain, Back Pain and Leg Pain Skin: No Symptoms Reported Neurological: No Symptoms Reported Physical Exam Vital Signs: Temperature 97.5 F Pulse Rate [Brachial] 106 Pulse Rate [Apical] 98 Pulse Rate 88 Respiratory Rate 20 Blood Pressure [Left Arm] 98/55 Blood Pressure [Right Arm] 120/60 Blood Pressure 95/63 O2 Sat by Pulse Oximetry 95 Oriented: Normal, Time, Person and Place Eyes: Normal Ear: Normal Nose: Normal Throat: Normal Respiratory: Diminished Throughout and Rhonchi Throughout Cardiovascular: Normal Auscultation: Bowel Sounds: Normal Palpation: Normal Tenderness: Normal Skin: Decreased Turgur Musculoskeletal: Normal Psychiatric: Agitation Mood Description: Calm Affect: Normal Speech Pattern: Clear and Appropriate Assessment/Plan (1) COPD exacerbation: Status: Acute Plan: IV antibiotics, jet nebs and IV Solu-Medrol. (2) Acute dehydration: Status: Acute (3) Rhabdomyolysis: Status: Acute Plan: IV fluid hydration, recheck creatine kinase tomorrow morning. (4) Hypertension: Qualifiers: Hypertension type: essential hypertension Qualified Code(s): I10 - Essential (primary) hypertension Status: Chronic Plan: Resume patient's home antihypertensives (5) Coronary artery disease: Qualifiers: Coronary Disease-Associated Artery/Lesion type: [place] artery Status: Chronic Review H&P Reviewed: Yes Patient was examined?: Yes
[2022-07-11] MEDS ORDERED: NICOTINE PATCH TD ONE (15:43)
[2022-07-11] MEDS: NICOTINE PATCH TD SCH (15:48)
[2022-07-11] MEDS: DESYREL PO SCH (20:26)
[2022-07-11] MEDS: SINEquan PO SCH (20:27)
[2022-07-12] MEDS: DUONEB 0.5 MG/3 MG (3 mL) NEB SCH ×3 (00:23→12:00)
[2022-07-12] MEDS: NS 1,000 ML IV 1,000 ML IV SCH ×4 (04:40→20:19)
[2022-07-12 07:12] LABS: BASOPHILS % (AUTO) 0 % (0.2-1.0); HEMATOCRIT 32.4 % (42.0-54.0); HEMOGLOBIN 10.8 g/dL (13.5-18.0); LYMPHOCYTES # (AUTO) 1.9 X10^3/uL (1.3-2.9); LYMPHOCYTES % (AUTO) 10.1 % (21.0-51.0); MEAN CORPUSCULAR HEMOGLOBIN 30.2 pg (27.0-34.0); MEAN CORPUSCULAR HGB CONC 33.3 g/dL (33.0-35.0); MEAN CORPUSCULAR VOLUME 90.5 fL (80.0-100.0); MEAN PLATELET VOLUME 8.4 fL (7.4-11.0); MONOCYTES # (AUTO) 1.2 x10^3/uL (0.3-0.8); MONOCYTES % (AUTO) 6.4 % (0.0-13.0); NEUTROPHILS # (AUTO) 15.3 x10^3/uL (2.2-4.8); NEUTROPHILS % (AUTO) 83.5 % (42.0-75.0); RED BLOOD COUNT 3.58 X10^6/uL (4.7-6.0); RED CELL DISTRIBUTION WIDTH 13.9 % (11.6-16.5); WHITE BLOOD COUNT 18.4 X10^3/uL (3.6-10.0)
[2022-07-12 07:21] LABS: ALBUMIN 2.4 g/dL (3.4-5.0); CALCIUM 8.6 mg/dL (8.5-10.1); CARBON DIOXIDE 25.3 mmol/L (21-32); COR CA(FOR HYPOALB) 9.9 mg/dL (8.5-10.1); CREATININE 1.97 mg/dL (0.70-1.30); TOTAL PROTEIN 7.2 g/dL (6.4-8.2)
[2022-07-12] MEDS: NICOTINE PATCH TD SCH (08:30)
[2022-07-12] MEDS: ROCEPHIN VIAL 1 GRAM 1 G in NS 100 ML IV 100 ML IV SCH (08:30)
[2022-07-12] MEDS: DESYREL PO SCH (20:18)
[2022-07-12] MEDS: ROBITUSSIN DM PO SCH (20:19)
[2022-07-12] MEDS: SINEquan PO SCH (20:19)
[2022-07-13] MEDS: DUONEB 0.5 MG/3 MG (3 mL) NEB SCH ×2 (00:05→05:31)
[2022-07-13] MEDS: NS 1,000 ML IV 1,000 ML IV SCH ×2 (05:26→10:30)
[2022-07-13 06:28] LABS: BASOPHILS # (AUTO) 0.1 X10^3/uL (0.0-0.1); BASOPHILS % (AUTO) 0.7 % (0.2-1.0); EOSINOPHILS # (AUTO) 0.1 x10^3/uL (0.0-0.2); EOSINOPHILS % (AUTO) 0.8 % (0.9-2.9); HEMATOCRIT 33.3 % (42.0-54.0); LYMPHOCYTES # (AUTO) 2.1 X10^3/uL (1.3-2.9); LYMPHOCYTES % (AUTO) 18.8 % (21.0-51.0); MEAN CORPUSCULAR HEMOGLOBIN 29.8 pg (27.0-34.0); MEAN CORPUSCULAR HGB CONC 33.1 g/dL (33.0-35.0); MEAN PLATELET VOLUME 8.1 fL (7.4-11.0); MONOCYTES # (AUTO) 0.9 x10^3/uL (0.3-0.8); NEUTROPHILS # (AUTO) 8.1 x10^3/uL (2.2-4.8); NEUTROPHILS % (AUTO) 71.7 % (42.0-75.0); RED CELL DISTRIBUTION WIDTH 13.6 % (11.6-16.5); WHITE BLOOD COUNT 11.3 X10^3/uL (3.6-10.0)
[2022-07-13 06:33] LABS: ALANINE AMINOTRANSFERASE 26 Units/L (12-78); ALBUMIN 2.4 g/dL (3.4-5.0); ALKALINE PHOSPHATASE 50 Units/L (46-116); ASPARTATE AMINO TRANSFERASE 42 Units/L (15-37); BLOOD UREA NITROGEN 21 mg/dL (7-18); CHLORIDE 105 mmol/L (98-107); COR CA(FOR HYPOALB) 9.3 mg/dL (8.5-10.1); CREATININE 1.47 mg/dL (0.70-1.30); SODIUM 137 mmol/L (136-145); TOTAL PROTEIN 6.7 g/dL (6.4-8.2); eGFR NON BLACK RACES 52 (>60)
[2022-07-13] MEDS: ROBITUSSIN DM PO SCH (08:31)
[2022-07-13] MEDS: NICOTINE PATCH TD SCH (08:31)
[2022-07-13] MEDS: ROCEPHIN VIAL 1 GRAM 1 G in NS 100 ML IV 100 ML IV SCH (08:32)
[2022-07-13] MEDS ORDERED: LOVENOX INJ 40 MG SYR SC SCH (09:00)
--- NOTE | 2022-07-13 09:57 | RAD ---
HISTORYPNEUMONIASTUDYCHEST, 1 [id number]/25/2022.TECHNIQUEAP view of the chestFINDINGSStatus post median sternotomy and CABG.[The cardiac and mediastinal contours are within normal limits. The lungs are clear without focal consolidation or segmental collapse. No pleural effusion or pneumothorax.]IMPRESSIONNo acute pulmonary process.Electronically signed by: Angel Garvin (Jul 13, 2022 09:55:14)
[2022-07-13 12:43] VITALS: BP 108/54
== END 2022-07-13 13:52 | disposition home or self-care (01) ==
LOC: MED/SURG 23:35 → ER 23:35 → MED/SURG 07-11 02:23
PROVIDERS: ADMIT Family Medicine; ATTEND Internal Medicine
DX: R00.0 Tachycardia, unspecified; E78.2 Mixed hyperlipidemia; I25.10 Atherosclerotic heart disease of native coronary artery without angina pectoris; R06.02 Shortness of breath; E86.0 Dehydration; J44.1 Chronic obstructive pulmonary disease with (acute) exacerbation; N28.9 Disorder of kidney and ureter, unspecified; K21.9 Gastro-esophageal reflux disease without esophagitis; Z20.822 Contact with and (suspected) exposure to COVID-19; R07.89 Other chest pain; M62.82 Rhabdomyolysis; E11.65 Type 2 diabetes mellitus with hyperglycemia; I10 Essential (primary) hypertension; J20.8 Acute bronchitis due to other specified organisms

== ENCOUNTER 2025-04-15 22:16 | Observation (INO) ==
--- NOTE | 2025-04-15 22:36 | DR.CP ---
HPI Time Seen Time Seen by Provider: 04/15/25 22:29 PCP Primary Care Physician: josefa Complaint Chief Complaint Doctor Comments: Patient complains of with a headache on his left side of his head began 3 days ago and the right hand became tingly last night about 11 PM as far as the chest pain he has that chronically after the CABG x 3 which resulted in occasional pleuritic stabbing pains which are unchanged from normal. He denies any shortness of breath nausea vomiting weakness or ataxia in any other extremity. He smokes 1-1/2 packs/day has a known CAD history hypertensionAs well as COPD Chief Complaint:: pt to ambulated to cardiac room with steady gait with complaint of headache on the lt side and rt hand tingling for the last hour pt states" I have chest pain every day thats not why I'm here" COVID-19 Coronavirus risk:travel/contact w/high risk person: No Has patient experienced Coronavirus symptoms: No Source History Provided: Patient Mode of Arrival Mode of Arrival: Ambulatory Timing Onset of Chief Complaint: 04/15/25 Location Chest Pain Radiation Location: Right Hand Associated Signs and Symptoms Associated Signs and Symptoms: None PMH PMH Past Medical History: Yes Past Medical History: Angina, COPD, Coronary Artery Disease, Diabetes, Dyslipidemia, GERD and Hypertension Past Surgical History: Yes Surgical History: CABG/Valve Surgery and Ortho Surgery Past Surgical History Comment: eye Family History History of Family Medical Conditions: Yes Family Medical History: Diabetes Mellitus and Hypertension Social History Does patient currently use any type of tobacco product: Yes Have you used tobacco products in the last 12 months: Yes Type of Tobacco Use: Cigarettes Does any household member use tobacco: Yes Alcohol Use: None Do you use any recreational Drugs:: No Lives With: Family Lives Where: Home Travel Risk Coronavirus risk:travel/contact w/high risk person: No Has patient experienced Coronavirus symptoms: No Infectious screening In the last 2 months have you had wt loss of >10#?: NO Have you had fever, night sweats or hemotysis?: No Have you traveled outside the country in the last 6 months?: No Isolation: Standard ROS Review of Systems Constitutional: No Symptoms Reported Eyes: No Symptoms Reported ENTM: No Symptoms Reported Respiratoy: No Symptoms Reported Cardiovascular: No Symptoms Reported Gastrointestinal/Abdominal: No Symptoms Reported Genitourinary: No Symptoms Reported Neurological: See HPI, Headache and Tingling Musculoskeletal: No Symptoms Reported Integumentary: No Symptoms Reported Hematologic/Lymphatic: No Symptoms Reported Endocrine: No Symptoms Reported Psychiatric: No Symptoms Reported All Other Systems: Reviewed and Negative PE Vitals Vitals: Vital Signs Temperature 98.4 F Pulse Rate [Apical] 113 Pulse Rate [Apical] 115 Pulse Rate 101 Pulse Rate 102 Pulse Rate 106 Pulse Rate 113 Pulse Rate 118 Pulse Rate 115 Pulse Rate 120 Pulse Rate 122 Pulse Rate 124 Respiratory Rate 18 Respiratory Rate 24 Respiratory Rate 18 Respiratory Rate 20 Respiratory Rate 16 Respiratory Rate 14 Respiratory Rate 22 Respiratory Rate 20 Respiratory Rate 21 Respiratory Rate 21 Respiratory Rate 22 Respiratory Rate 25 Respiratory Rate 22 Blood Pressure [Left Arm] 128/68 Blood Pressure [Left Arm] 135/69 Blood Pressure [Right Arm] 142/81 Blood Pressure 125/62 Blood Pressure 128/68 Blood Pressure 140/72 Blood Pressure 142/81 Blood Pressure 142/68 Blood Pressure 135/69 Blood Pressure 136/74 Blood Pressure 147/82 Blood Pressure 147/71 O2 Sat by Pulse Oximetry 98 O2 Sat by Pulse Oximetry 98 O2 Sat by Pulse Oximetry 98 O2 Sat by Pulse Oximetry 98 O2 Sat by Pulse Oximetry 98 O2 Sat by Pulse Oximetry 98 O2 Sat by Pulse Oximetry 98 O2 Sat by Pulse Oximetry 98 O2 Sat by Pulse Oximetry 99 O2 Sat by Pulse Oximetry 98 General Limitations: No Limitations General Appearance: Alert and In No Apparent Distress Head Head Exam: Normal Inspection Eyes Eye exam: Normal Appearance ENT ENT Exam: Normal Exam Chest Chest Inspection: Normal Inspection Respiratory Respiratory Exam: Normal Lung Sounds Bilat Cardiovascular Cardiovascular Exam: Regular Rate (Tachycardia noted), Normal Rhythm and Other Pulse: Normal Edema: Normal Abdominal Exam Abdominal Exam: Normal Inspection, Normal Bowel Sounds and Soft Extremities Extremities Exam: Normal Inspection Back Back Exam: Normal Inspection Neurologic Neurological Exam: Alert and Oriented X3 Psychiatric Psychiatric Exam: Normal Affect and Normal Mood Skin Skin Exam: Warm, Dry, Intact and Normal Color Other Exam Other Exam: Patient has no neurologic deficits on exam does complain of 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0) L 04/15/25 22:23 [place] % (Auto) 8.5 % (0.0-13.0) 04/15/25 22:23 Eos % (Auto) 1.0 % (0.9-2.9) 04/15/25 22:23 Baso % (Auto) 1.3 % (0.2-1.0) H 04/15/25 22:23 Neut # (Auto) 6.3 x10^3/uL (2.2-4.8) H 04/15/25 22:23 Lymph # (Auto) 1.8 X10^3/uL (1.3-2.9) 04/15/25 22:23 [place] # (Auto) 0.8 x10^3/uL (0.3-0.8) 04/15/25 22:23 Eos # (Auto) 0.1 x10^3/uL (0.0-0.2) 04/15/25 22:23 Baso # (Auto) 0.1 X10^3/uL (0.0-0.1) 04/15/25 22:23 Absolute Nucleated RBC 0.2 /100WBC 04/15/25 22:23 PT 13.7 SECONDS (11.8-14.3) 04/15/25 22:23 INR Target Range - 04/15/25 22:23 INR 1.04 (0.8-1.3) 04/15/25 22:23 APTT 37.2 SECONDS (22.9-36.5) H 04/15/25 22:23 PTT Comment - 04/15/25 22:23 Sodium 134 mmol/L (136-145) L 04/15/25 22:23 Corrected Sodium 141 mmol/L (136-145) 04/15/25 22:23 Potassium 3.6 mmol/L (3.5-5.1) 04/15/25 22:23 Chloride 96 mmol/L (98-107) L 04/15/25 22:23 Carbon Dioxide 24.6 mmol/L (21-32) 04/15/25 22:23 BUN 10 mg/dL (7-18) 04/15/25 22:23 Creatinine 1.75 mg/dL (0.70-1.30) H 04/15/25 22:23 Est GFR (MDRD) Af Amer 51 (>60) L 04/15/25 22:23 Est GFR (MDRD) Non-Af 42 (>60) L 04/15/25 22:23 Glucose 383 mg/dL (65-99) H 04/15/25 22:23 POC Glucose (mg/dL) 269 mg/dL (65-99) H 04/16/25 00:24 Hemoglobin A1c 8.3 % 04/15/25 22:23 Calcium 9.0 mg/dL (8.5-10.1) 04/15/25 22:23 Corrected Calcium 9.6 mg/dL (8.5-10.1) 04/15/25 22:23 Magnesium 2.0 mg/dL (2.0-2.9) 04/16/25 00:25 Total Bilirubin 0.40 mg/dL (0.2-1.0) 04/15/25 22:23 AST 64 Units/L (15-37) H 04/15/25 22:23 ALT 85 Units/L (12-78) H 04/15/25 22:23 Alkaline Phosphatase 173 Units/L (46-116) H 04/15/25 22:23 Creatine Kinase 359 Units/L (39-308) H 04/15/25 22:23 Troponin I High Sens 11.7 ng/L (4.0-60.0) 04/16/25 00:25 Total Protein 7.7 g/dL (6.4-8.2) 04/15/25 22:23 Albumin 3.3 g/dL (3.4-5.0) L 04/15/25 22:23 Globulin 4.4 g/dL (2.5-4.5) 04/15/25 22:23 Albumin/Globulin Ratio 0.8 Ratio (1.1-2.1) L 04/15/25 22:23 EKG Compared to prior EKG Dated: 07/11/22 Rate: 124 Rhythm: ST ST: Old Opioid Opioid Risk Tool Age (Thomas box if 16-45): No History of Preadolescent Sexual Abuse: No Total: 0 Total Score Risk Category: Low Risk Copyright: [facility] predicting aberrant behaviors Discharge Plan Diagnosis Discharge Problem: Arm paresthesia, right, Headache, Diabetes mellitus, new onset, Hypomagnesemia Discharge Plan Patient Disposition: ADMITTED INPATIENT Condition: Stable Prescription drug monitoring program results: PDMP was not reviewed Prescriptions: No Action lisinopril 20 MG tablet 20 mg PO QPM amlodipine 10 MG tablet 10 mg PO QPM atorvastatin 80 MG tablet 80 mg PO QPM Patient Comments: omeprazole 40 MG capsule,delayed release(DR/EC) 40 mg PO QAM Patient Comments: aspirin [Aspir-Low] 81 MG tablet,delayed release (DR/EC) 81 mg PO QAM tizanidine 4 mg Tablet 8 mg PO TID spironolactone 25 mg Tablet 25 mg PO QAM furosemide [Lasix] 20 mg Tablet 20 mg PO QAM gemfibrozil 600 mg tablet 600 mg PO BID doxepin 50 mg capsule 100 cap PO QHS trazodone 50 mg tablet 100 mg PO QPM fenofibrate micronized 200 mg capsule 200 mg PO QPM albuterol sulfate 90 mcg/actuation HFA aerosol inhaler 2 inh inhalation PRN PRN Trelegy Ellipta 100-62.5-25 mcg Blister With Device 1 inh INHALATION QAM Health Concerns: Post Hospitalization: new medications and changes needed to prevent readmission or further decline. Pt educated and given instructions on all concerns. Plan of Treatment: Continue with present treatment and follow up plan. Pt is to keep follow up appointment as instructed and take medications as ordered. Orders to Discharge Patient Discharge Orders: Transfer (Routine); Ordered 04/16/25 Ordered By: Michelle Pringle Follow ups/Referrals Follow ups/Referrals: COLE RILEY [Primary Care Provider, MEDICAL] - 3 days Instructions Stand Alone Forms: Find Help Web Site, Post Hospital Follow Up Care Print Language: ARMENIAN
--- NOTE | 2025-04-15 22:42 | EKG ---
Test Reason : chest pain Blood Pressure : */* mmHG Vent. Rate : 124 BPM Atrial Rate : 124 BPM P-R Int : 134 ms QRS Dur : 96 ms QT Int : 322 ms P-R-T Axes : 65 97 -4 degrees QTc Int : 462 ms Sinus tachycardia Possible Left atrial enlargement Rightward axis T wave abnormality, consider inferior ischemia Abnormal ECG When compared with ECG of 11-JUL-2022 00:27, T wave inversion now evident in Inferior leads T wave inversion no longer evident in Anterior leads Confirmed by Frank Pleitez MD ([id number]) on 04/16/2025 7:27:18 AM Referred By: Confirmed By: Frank Pleitez MD
[2025-04-15 22:44] LABS: INR 1.04 (0.8-1.3)
[2025-04-15 22:51] LABS: COR CA(FOR HYPOALB) 9.6 mg/dL (8.5-10.1); COR NA(FOR HYPERGLY) 141.0 mmol/L (136-145); CREATININE 1.75 mg/dL (0.70-1.30); eGFR NON BLACK RACES 42.0 (>60)
[2025-04-15 22:59] LABS: MEAN PLATELET VOLUME 9.1 fL (7.4-11.0); RED CELL DISTRIBUTION WIDTH 13.4 % (11.6-16.5)
--- NOTE | 2025-04-15 23:05 | CT ---
EXAM: BRAIN W/O CON HISTORY: pt to ambulated to cardiac room with steady gait with complaint of headache on the lt side and rt hand tingling for the last hour pt states" I have chest pain every day thats not why I'm here"; COMPARISON: None. TECHNIQUE: Multiple axial images of the head were performed from the skullbase to the vertex using standard departmental protocol. Sagittal and coronal reformatted images were performed. Dose reduction techniques including Automated Exposure Control (AEC) and adjustment of mA and kV were utilized. FINDINGS: The sulci, cisterns and ventricles are age appropriate. Mild cortical atrophy compatible with patient's age. There is no evidence of acute territorial infarction, hemorrhage, mass, mass effect or midline shift. There are no abnormal intra-axial or extra-axial fluid collections. Small mucoid retention cyst within the right maxillary sinus. IMPRESSION: Mild cortical atrophy No evidence of acute intracranial abnormality. Chronic right maxillary sinusitis THIS IS AN ELECTRONICALLY VERIFIED FINAL REPORT 04/15/2025 11:02 PM - Electronically signed by Jasper Pace MD
[2025-04-15] MEDS ORDERED: NovoLIN R (or HumuLIN R) ONE (23:22)
[2025-04-15] MEDS: NovoLIN R (or HumuLIN R) SUBCUT ONE (23:25)
[2025-04-15] MEDS ORDERED: ZOFRAN INJ 4 MG VIAL ONE (23:29)
[2025-04-15] MEDS ORDERED: MORPHINE SULFATE INJ 4 MG ONE (23:29)
[2025-04-15] MEDS: ZOFRAN INJ 4 MG VIAL IVP ONE (23:30)
[2025-04-15] MEDS: MORPHINE SULFATE INJ 4 MG IVP ONE (23:30)
[2025-04-16] MEDS ORDERED: NS IV PRN
[2025-04-16] MEDS ORDERED: MAGNESIUM SULFATE IV PRN
[2025-04-16] MEDS ORDERED: MAGNESIUM SULFATE 1 GRAM/100 mL PREMIX 1 G/100 ML BAG IV ONE (00:01)
[2025-04-16] MEDS: MAGNESIUM SULFATE 1 GRAM/100 mL PREMIX 1 G/100 ML BAG IV ONE (00:04)
--- NOTE | 2025-04-16 01:03 | EKG ---
Test Reason : chest pain Blood Pressure : */* mmHG Vent. Rate : 96 BPM Atrial Rate : 96 BPM P-R Int : 136 ms QRS Dur : 96 ms QT Int : 372 ms P-R-T Axes : 49 86 76 degrees QTc Int : 469 ms Normal sinus rhythm T wave abnormality, consider anterior ischemia Prolonged QT Abnormal ECG When compared with ECG of 15-APR-2025 22:29, (Unconfirmed) T wave inversion no longer evident in Inferior leads T wave inversion now evident in Anterior leads Confirmed by Frank Pleitez MD ([id number]) on 04/16/2025 7:26:57 AM Referred By: Confirmed By: Frank Pleitez MD
[2025-04-16] MEDS ORDERED: PROVENTIL NEB TX 0.083% 2.5MG/ 3ML NEB PRN (03:03)
[2025-04-16 03:11] VITALS: BMI 27.4
[2025-04-16] MEDS ORDERED: TYLENOL 325 MG TAB PO PRN (03:16)
[2025-04-16] MEDS ORDERED: CONSULT PHARMACY - POTASSIUM & MAGNESIUM XX SCH (03:16)
[2025-04-16] MEDS ORDERED: MORPHINE SULFATE INJ 2 MG INJ IVP PRN (03:16)
[2025-04-16] MEDS ORDERED: ULTRAM PO PRN (03:16)
[2025-04-16] MEDS: ZANAFLEX PO SCH (05:10)
[2025-04-16 05:58] LABS: MEAN PLATELET VOLUME 8.8 fL (7.4-11.0); RED CELL DISTRIBUTION WIDTH 13.7 % (11.6-16.5)
[2025-04-16 06:18] LABS: COR CA(FOR HYPOALB) 10.0 mg/dL (8.5-10.1); COR NA(FOR HYPERGLY) 141 mmol/L (136-145); CREATININE 1.32 mg/dL (0.70-1.30); eGFR NON BLACK RACES 59 (>60)
--- NOTE | 2025-04-16 07:40 | RAD ---
EXAM: CHEST, 1 VIEW HISTORY: pt to ambulated to cardiac room with steady gait with complaint of headache on the lt side and rt hand tingling for the last hour pt states" I have chest pain every day thats not why I'm here"; COMPARISON: No relevant prior studies were available for comparison at the time of interpretation. TECHNIQUE: CHEST, 1 VIEW FINDINGS: Chest: Lines and tubes: Cardiac leads overlie the chest. Mediastinum: Median sternotomy wires are present. Cardiac shadow is normal in size. Pulmonary vessels: No pulmonary vascular congestion. Lung rowe: No suspicious airspace opacity. Pleura: No effusion. No pneumothorax. Bones and soft tissues: No acute osseous or soft tissue abnormality. IMPRESSION: 1. No acute cardiopulmonary abnormality THIS IS AN ELECTRONICALLY VERIFIED FINAL REPORT 04/16/2025 7:29 AM - Electronically signed by Jerry Wilson MD
[2025-04-16] MEDS ORDERED: PULMICORT NEB TX 0.5 MG NEB ONE (07:47)
[2025-04-16] MEDS: NICOTINE PATCH TD SCH (08:22)
[2025-04-16] MEDS: ALDACTONE TAB 25 MG PO SCH (08:23)
[2025-04-16] MEDS: LOPID PO SCH (08:23)
[2025-04-16] MEDS: ASPIRIN EC 81 MG PO SCH (08:23)
[2025-04-16] MEDS: LASIX PO SCH (08:23)
[2025-04-16] MEDS: KLOR-CON 10 MEQ TAB PO ONE (08:23)
[2025-04-16] MEDS: NORCO 5/325 MG TAB PO PRN (08:26)
[2025-04-16] MEDS: PULMICORT NEB TX 0.5 MG NEB SCH (08:28)
--- NOTE | 2025-04-16 08:36 | EKG ---
Test Reason : hx cad Blood Pressure : */* mmHG Vent. Rate : 89 BPM Atrial Rate : 89 BPM P-R Int : 130 ms QRS Dur : 92 ms QT Int : 384 ms P-R-T Axes : 44 86 108 degrees QTc Int : 467 ms Normal sinus rhythm Abnormal ECG When compared with ECG of 16-APR-2025 01:02, Inverted T waves have replaced nonspecific T wave abnormality in Lateral leads Confirmed by Frank Pleitez MD ([id number]) on 04/16/2025 10:45:36 AM Referred By: Confirmed By: Frank Pleitez MD
[2025-04-16] MEDS ORDERED: PATIENT'S HOME MEDICATION (Fluticasone-Umeclidin-Vilanter [Trelegy Ellipta] 100-62.5-25 mc IN SCH (09:00)
[2025-04-16] MEDS ORDERED: PHARMACY CONSULT XX SCH (09:00)
[2025-04-16] MEDS ORDERED: PROVENTIL NEB TX 0.083% 2.5MG/ 3ML NEB SCH (09:00)
[2025-04-16] MEDS ORDERED: LOVENOX INJ 40 MG SYR SC SCH (09:00)
--- NOTE | 2025-04-16 09:05 | CT ---
EXAMINATION: CERVICAL SPINE W/O CON HISTORY: arm paresthesias; COMPARISON: None. TECHNIQUE: C ontiguous noncontrast axial CT images of the cervical spine. Images reviewed in the axial imaging plane with reformatted sagittal and coronal images.The above CT scan was done with automated exposure control and the mA and kV was adjusted to obtain quality images according to patient size. FINDINGS: The cervical vertebral bodies maintain normal height and alignment. No evidence of a displaced fracture or significant subluxation. Precervical soft tissue outlines appear intact. C2-3 level demonstrates no significant central spinal canal or neural foraminal stenosis. C3-4 level demonstrates no significant central spinal canal or neural foraminal stenosis. C4-5 level demonstrates no significant central spinal canal or neural foraminal stenosis. C5-6 level demonstrates posterior disc herniation eccentric toward the left effacing the left anterolateral aspect of the thecal sac. The neural foramen appear patent. C6-7 level demonstrates small posterior central disc herniation with associated mild central spinal canal stenosis, no significant neural foraminal stenosis. C7-T1 level demonstrates no significant central spinal canal or neural foraminal stenosis. Arterial vascular calcifications carotid and vertebral arteries. IMPRESSION: C5-6 level demonstrates posterior disc herniation eccentric toward the left effacing the left anterolateral aspect of the thecal sac. C6-7 level demonstrates small posterior central disc herniation. Recommend further evaluation with MRI of the cervical spine to better define the central spinal canal and neural foramen. THIS IS AN ELECTRONICALLY VERIFIED FINAL REPORT 04/16/2025 9:02 AM - Electronically signed by Vicky Mcconnell MD
[2025-04-16] MEDS: PLAVIX PO SCH (09:24)
[2025-04-16] MEDS: LOVENOX INJ 40 MG SYR SC SCH (09:25)
--- NOTE | 2025-04-16 10:39 | DR.CONSULT ---
CONSULT Consultation for Day of: Date: 04/16/25 Chief Complaint Chief Complaint: JAIME/l arm numbness Allergies Allergies Allergy/AdvReac Type Severity Reaction Status Date / Time fish oil AdvReac Mild NAUSEA Verified 03/20/24 09:59 History of Present Illness History of Present Illness: 59 yo male- sees [facility] for cardiac care- had cabg 2019- no cath post cabg- c/o fdaily short lived episodes of cp since cabg- very sob w any exertion-still smokes- came to er w above symptoms- brain ct: nad cervical spine ct: disc protrusion at mult levels- ekg: ant t abnl worse than before, trops x2 negative- elevated lfts/alk phos but states no etoh Past Medical History Past Medical History: Angina, COPD, Coronary Artery Disease, Diabetes, Dyslipidemia, GERD and Hypertension Additional Medical History: Skin Cancer Past Surgical History Surgical History: CABG/Valve Surgery Additional Surgical History: 70% LAD, Angioplasty x 5 Family History Family Medical History: Diabetes Mellitus Social History Does patient currently use any type of tobacco product: Yes Have you used tobacco products in the last 12 months: Yes Type of Tobacco Use: Cigarettes Does any household member use tobacco: Yes Alcohol Use: None Drug Use: None Medications Home Medications: fish oil Adverse Reaction (Mild, Verified 03/20/24 09:59) NAUSEA Physical Exam Vital Signs: Vital Signs Temperature 97.0 F Temperature 97.9 F Temperature 97.9 F Temperature 97.8 F Pulse Rate [Apical] 88 Pulse Rate [Apical] 90 Pulse Rate [Apical] 90 Pulse Rate [Apical] 96 Pulse Rate 90 Respiratory Rate 19 Respiratory Rate 19 Respiratory Rate 19 Respiratory Rate 19 Respiratory Rate 18 Blood Pressure [Right Arm] 101/58 Blood Pressure [Right Arm] 123/61 Blood Pressure [Right Arm] 123/61 Blood Pressure [Right Arm] 130/66 O2 Sat by Pulse Oximetry 96 O2 Sat by Pulse Oximetry 99 O2 Sat by Pulse Oximetry 99 O2 Sat by Pulse Oximetry 99 O2 Sat by Pulse Oximetry 97 alert ox3 no bruits soft wheeze rrr no ruq pain minimal edema Plan (1) Headache: Status: Acute (2) Arm paresthesia, right: Status: Acute (3) Chest pain: Status: Acute Qualifiers: Chest pain type: unspecified Qualified Code(s): R07.9 - Chest pain, unspecified (4) SOB (shortness of breath): Status: Acute (5) Coronary artery disease: Status: Chronic Qualifiers: Coronary Disease-Associated Artery/Lesion type: [place] artery Narrative Support Text: 5 years post cabg- very sob-lung/heart- with ekg- needs ischemic eval- will check lv function first- if bad: cath, of ok- will consider stress test- on good meds but no BB: wheezing (6) Hypertension: Status: Chronic Qualifiers: Hypertension type: essential hypertension Qualified Code(s): I10 - Essential (primary) hypertension (7) Hyperlipidemia: Status: Acute (8) Smoker: Status: Acute Narrative Support Text: has to stop (9) Elevated liver enzymes: Status: Acute Plan: liver u/s
[2025-04-16] MEDS: NovoLIN R (or HumuLIN R) SUBCUT PRN (11:31)
--- NOTE | 2025-04-16 13:47 | DR.H&P ---
H&P History & Physical for Day of: H&P Date: 04/15/25 Chief Complaint Chief Complaint: LEFT SIDE JAIME, RIGHT HAND TINGLING History of Present Illness History of Present Illness: Patient complains of with a headache on his left side of his head began 3 days ago and the right hand became tingly last night about 11 PM. Pt denies any chest pain or increased sob. Past Medical History Past Medical History: Angina, COPD, Coronary Artery Disease, Diabetes, Dyslipidemia, GERD and Hypertension Additional Medical History: Skin Cancer Past Surgical History Surgical History: CABG/Valve Surgery Additional Surgical History: 70% LAD, Angioplasty x 5 Family History Family Medical History: Diabetes Mellitus Social History Does patient currently use any type of tobacco product: Yes Have you used tobacco products in the last 12 months: Yes Type of Tobacco Use: Cigarettes Does any household member use tobacco: Yes Alcohol Use: None Drug Use: None Medications Home Medications: Home Medications Medication Instructions Recorded Confirmed Type amlodipine 10 mg tablet 10 mg PO QPM 04/13/17 History lisinopril 20 mg tablet 20 mg PO QPM 04/13/17 History aspirin 81 mg tablet,delayed 81 mg PO QAM 06/28/17 History release (Aspir-Low) atorvastatin 80 mg tablet 80 mg PO QPM 06/28/17 History omeprazole 40 mg capsule,delayed 40 mg PO QAM 06/28/17 04/15/25 History release furosemide 20 mg tablet (Lasix) 20 mg PO QAM 04/01/20 04/15/25 History spironolactone 25 mg tablet 25 mg PO QAM 04/01/2003/19 History tizanidine 4 mg tablet 8 mg PO TID 04/01/20 5 History albuterol sulfate 90 mcg/actuation 2 inh inhalation DC N PRN 07/10/22 04/15/25 History aerosol inhaler doxepin 50 mg capsule 100 cap PO QHS 07/10/2203/19 History fenofibrate micronized 200 mg 200 mg PO QPM 07/10/22 0 04/15/25 History capsule fluticasone fur. 100 mcg-umeclid 1 inh inhalation QAM 07/10/22 04/15/25 History 62.5 mcg-vilant 25 mcg inhalat.powder (Trelegy Ellipta) trazodone 50 mg tablet 100 mg PO QPM 07/10/2204/15 History gemfibrozil 600 mg tablet 600 mg PO BID 03/20/2404/15 History Allergies Allergies Allergy/AdvReac Type Severity Reaction Status Date / Time fish oil AdvReac Mild NAUSEA Verified 03/20/24 09:59 Labs 04/16/25 05:08 04/16/25 05:08 Labs: Laboratory WBC 7.9 X10^3/uL (3.6-10.0) 04/16/25 05:08 RBC 4.67 X10^6/uL (4.7-6.0) L 04/16/25 05:08 Hgb 14.0 g/dL (13.5-18.0) 04/16/25 05:08 Hct 40.6 % (42.0-54.0) L 04/16/25 05:08 MCV 87.1 fL (80.0-100.0) 04/16/25 05:08 MCH 30.0 pg (27.0-34.0) 04/16/25 05:08 MCHC 34.5 g/dL (33.0-35.0) 04/16/25 05:08 RDW 13.7 % (11.6-16.5) 04/16/25 05:08 Plt Count 360 X10^3/uL (150.0-450.0) 04/16/25 05:08 MPV 8.8 fL (7.4-11.0) 04/16/25 05:08 Neut % (Auto) 61.0 % (42.0-75.0) 04/16/25 05:08 Lymph % (Auto) 25.5 % (21.0-51.0) 04/16/25 05:08 [place] % (Auto) 10.4 % (0.0-13.0) 04/16/25 05:08 Eos % (Auto) 2.1 % (0.9-2.9) 04/16/25 05:08 Baso % (Auto) 1.0 % (0.2-1.0) 04/16/25 05:08 Neut # (Auto) 4.8 x10^3/uL (2.2-4.8) 04/16/25 05:08 Lymph # (Auto) 2.0 X10^3/uL (1.3-2.9) 04/16/25 05:08 [place] # (Auto) 0.8 x10^3/uL (0.3-0.8) 04/16/25 05:08 Eos # (Auto) 0.2 x10^3/uL (0.0-0.2) 04/16/25 05:08 Baso # (Auto) 0.1 X10^3/uL (0.0-0.1) 04/16/25 05:08 Absolute Nucleated RBC 0.3 /100WBC 04/16/25 05:08 PT 13.7 SECONDS (11.8-14.3) 04/15/25 22:23 INR Target Range - 04/15/25 22:23 INR 1.04 (0.8-1.3) 04/15/25 22:23 APTT 37.2 SECONDS (22.9-36.5) H 04/15/25 22:23 PTT Comment - 04/15/25 22:23 Sodium 140 mmol/L (136-145) 04/16/25 05:08 Corrected Sodium 141 mmol/L (136-145) 04/16/25 05:08 Potassium 3.5 mmol/L (3.5-5.1) 04/16/25 05:08 Chloride 100 mmol/L (98-107) 04/16/25 05:08 Carbon Dioxide 27.8 mmol/L (21-32) 04/16/25 05:08 BUN 9 mg/dL (7-18) 04/16/25 05:08 Creatinine 1.32 mg/dL (0.70-1.30) H 04/16/25 05:08 Est GFR (MDRD) Af Amer > 60 (>60) 04/16/25 05:08 Est GFR (MDRD) Non-Af 59 (>60) 04/16/25 05:08 Glucose 141 mg/dL (65-99) H 04/16/25 05:08 POC Glucose (mg/dL) 133 mg/dL (65-99) H 04/16/25 04:56 Hemoglobin A1c 8.3 % 04/15/25 22:23 Calcium 9.4 mg/dL (8.5-10.1) 04/16/25 05:08 Corrected Calcium 10.0 mg/dL (8.5-10.1) 04/16/25 05:08 Magnesium 2.1 mg/dL (2.0-2.9) 04/16/25 05:08 Total Bilirubin 0.30 mg/dL (0.2-1.0) 04/16/25 05:08 AST 62 Units/L (15-37) H 04/16/25 05:08 ALT 87 Units/L (12-78) H 04/16/25 05:08 Alkaline Phosphatase 164 Units/L (46-116) H 04/16/25 05:08 Creatine Kinase 359 Units/L (39-308) H 04/15/25 22:23 Troponin I High Sens 11.7 ng/L (4.0-60.0) 04/16/25 00:25 Total Protein 7.8 g/dL (6.4-8.2) 04/16/25 05:08 Albumin 3.3 g/dL (3.4-5.0) L 04/16/25 05:08 Globulin 4.5 g/dL (2.5-4.5) 04/16/25 05:08 Albumin/Globulin Ratio 0.7 Ratio (1.1-2.1) L 04/16/25 05:08 Review of Systems Constitutional: No Symptoms Reported Eyes: No Symptoms Reported ENT: No Symptoms Reported Respiratory: denies Shortness of Breath Cardiovascular: No Symptoms Reported; denies Chest Pain or Edema Gastrointestinal: No Symptoms Reported Genitourinary: No Symptoms Reported Musculoskeletal: No Symptoms Reported Skin: No Symptoms Reported Neurological: Numbness (right hand numbness and tingling) and Other (headache) Physical Exam Vital Signs: Vital Signs Temperature 97.0 F Temperature 97.9 F Temperature 97.9 F Temperature 97.8 F Pulse Rate [Apical] 88 Pulse Rate [Apical] 90 Pulse Rate [Apical] 90 Pulse Rate [Apical] 96 Pulse Rate [Apical] 94 Pulse Rate 90 Pulse Rate 95 Pulse Rate 101 Pulse Rate 101 Respiratory Rate 19 Respiratory Rate 19 Respiratory Rate 19 Respiratory Rate 18 Respiratory Rate 18 Respiratory Rate 20 Respiratory Rate 17 Respiratory Rate 18 Respiratory Rate 24 Blood Pressure [Left Arm] 137/69 Blood Pressure [Right Arm] 101/58 Blood Pressure [Right Arm] 123/61 Blood Pressure [Right Arm] 123/61 Blood Pressure [Right Arm] 130/66 Blood Pressure 124/63 Blood Pressure 125/66 Blood Pressure 125/62 O2 Sat by Pulse Oximetry 96 O2 Sat by Pulse Oximetry 99 O2 Sat by Pulse Oximetry 99 O2 Sat by Pulse Oximetry 99 O2 Sat by Pulse Oximetry 97 O2 Sat by Pulse Oximetry 97 O2 Sat by Pulse Oximetry 97 O2 Sat by Pulse Oximetry 98 O2 Sat by Pulse Oximetry 98 Oriented: Normal Eyes: Normal Ear: Normal Nose: Normal Throat: Dry Respiratory: RLL Diminished and LLL Diminished Cardiovascular: Normal; negative Edema Auscultation: Bowel Sounds: Normal Palpation: Normal Tenderness: Normal Skin: Decreased [place] Musculoskeletal: Sensory Deficit (right hand); negative Motor Deficit Psychiatric: Normal Mood Description: Anxious Affect: Normal Speech Pattern: Clear and Appropriate; negative Delayed or Aphasic Assessment/Plan (1) Headache: Narrative Support Text: acute left side jaime Status: Acute Plan: acute onset, ct head on admission bp and bs control verify home medications iv hydration, mag replacement ce and ekg (2) Arm paresthesia, right: Status: Acute (3) Diabetes mellitus, new onset: Status: Acute (4) Hypomagnesemia: Status: Acute (5) Hyperlipidemia: Status: Acute
[2025-04-16] MEDS: NS 1,000 ML IV 1,000 ML IV SCH (14:07)
--- NOTE | 2025-04-16 14:25 | US ---
EXAMINATION: LIVER HISTORY: elevated lfts; ELEVATED LFTS . COMPARISON STUDY: None. TECHNIQUE: Right upper quadrant ultrasound was performed. FINDINGS: Liver:Fatty liver with hepatomegaly. The liver measures 18.8 cm in greatest dimension. No focal hepatic lesions. Hepato pedal flow in the portal vein. Hepatic venous and arterial waveforms are unremarkable. GB/Bulmaro:Multiple gallstones. No wall thickening, pericholecystic fluid or sonographic Marquez's sign is seen. The common bile duct measures 3.7 mm. Wall thickness 3 mm. Pancreas:Head and body of the pancreas are of normal echogenicity. Tail is obscured by bowel gas IVC:Unremarkable. Other: No free fluid. Rt kidney:Unremarkable. No hydronephrosis or solid-appearing lesion.. IMPRESSION: No acute findings Fatty liver Cholelithiasis. No sonographic evidence for cholecystitis THIS IS AN ELECTRONICALLY VERIFIED FINAL REPORT 04/16/2025 2:16 PM - Electronically signed by Jere Dhillon MD
--- NOTE | 2025-04-16 15:15 | VAS ---
EXAM: CAROTID US HISTORY: Quevedo, numbness to right hand; RT HAND PARETHESIA WITH QUEVEDO COMPARISON: None TECHNIQUE: 59 images made by the flower buncher or picker. Aragon scale and color flow Doppler images of the right carotid arterial system, left carotid arterial system, and vertebral arterial system were obtained. FINDINGS: Velocities are measured in centimeters per second. Recommendations are based on peer reviewed published data from Society of Radiologists in Ultrasound Consensus Conference, 2003. Right side: Right common carotid and internal carotid arteries are widely patent. Hard plaque is present in the carotid bulb. Relevant systolic velocity in the right common carotid artery measured 63. Peak systolic velocity in the right internal carotid artery measured 83. This yields a systolic velocity ratio of 1.32. The peak ICA end diastolic velocity measured 28. Findings suggest a stenosis of less than 50%. Right external carotid artery was patent. Flow in the right vertebral artery was antegrade. Left side: Left common carotid and internal carotid arteries are widely patent. Hard plaque is present in the carotid bulb. There are areas of shadowing indicating calcification. Relevant systolic velocity in the left common carotid artery measured 43. Peak systolic velocity in the left internal carotid artery measured 139. This yields a systolic velocity ratio of 3.2. The peak ICA end diastolic velocity measured 40. Findings suggest a stenosis of 50-69%. Left external carotid artery was patent. Flow in the left vertebral artery was antegrade. IMPRESSION: 1. Bilateral carotid bulb plaque disease 2. (50-69%) left ICA stenosis 3. Less than 50% right ICA stenosis THIS IS AN ELECTRONICALLY VERIFIED FINAL REPORT 04/16/2025 3:11 PM - Electronically signed by Jeremías Obregon MD
--- NOTE | 2025-04-16 18:45 | MRI ---
EXAM: MRI OF THE BRAIN WITHOUT CONTRAST HISTORY: Right arm numbness. TECHNIQUE: Multiplanar (axial, sagittal, and coronal) T1, T2, FLAIR, diffusion, and gradient echo images are obtained through the brain without administration of gadolinium. COMPARISON: Head CT dated April 15, 2025. FINDINGS: There is no evidence for intraparenchymal mass lesion, hemorrhage, edema, infarction or demyelinating plaque disease seen. The centrum semiovale, basal ganglia, cerebellum and brain stem are unremarkable. There is no extra-axial mass lesion or abnormal fluid collection seen. No midline shift or other mass effect is evident. No cerebellar tonsillar herniation is identified. There is no ventriculomegaly. The third and fourth ventricles are widely patent. The cerebello-pontine angles and internal acoustic canals are within normal limits. The vestibulocochlear nerves are unremarkable. There is a small area of air cell opacification within the posterior aspect of the right mastoid sinus in keeping with chronic mastoiditis. There is a small (approximately 8.1 mm) chronic postinflammatory mucous retention cyst or polyp in the posterior right maxillary sinus. The paranasal sinuses are otherwise clear. No suprasellar mass lesion or optic chiasm compression is observed. The cerebrovascular structures are grossly unremarkable for a nondedicated exam. No gross intra-orbital abnormality is evident. IMPRESSION: 1. No gross acute intracranial abnormality seen. 2. No intracranial hemorrhage, infarction, demyelinating plaque disease, mass lesions, midline shift, mass effect or hydrocephalus seen. 3. No suprasellar mass or optic chiasm compression. 4. No cerebellopontine angle or intraorbital lesion seen. 5. Small area of air cell opacification within the posterior aspect of the right mastoid sinus in keeping with chronic mastoiditis. 6. Small (approximately 8.1 mm) chronic postinflammatory mucous retention cyst or polyp in the posterior right maxillary sinus, in keeping with chronic sequela of sinusitis. THIS IS AN ELECTRONICALLY VERIFIED FINAL REPORT 04/16/2025 6:42 PM - Electronically signed by Gildardo Martinez MD
[2025-04-16] MEDS ORDERED: ZESTRIL TAB 20 MG ONE (20:02)
[2025-04-16] MEDS: DUONEB 0.5 MG/3 MG (3 mL) NEB SCH (20:08)
[2025-04-16] MEDS: SNACK - Diabetic Appropriate PO SCH (20:15)
[2025-04-16] MEDS: NORVASC TAB 10 MG PO SCH (20:15)
[2025-04-16] MEDS: DESYREL PO SCH (20:15)
[2025-04-16] MEDS: ZESTRIL TAB 20 MG PO SCH (20:17)
[2025-04-16] MEDS ORDERED: LIPITOR TAB 80 MG PO SCH (21:00)
[2025-04-16] MEDS: FENOFIBRATE MICRONIZED 200 MG PO SCH (21:34)
[2025-04-17 05:21] LABS: MEAN PLATELET VOLUME 9.2 fL (7.4-11.0); RED CELL DISTRIBUTION WIDTH 13.7 % (11.6-16.5)
[2025-04-17 05:35] LABS: CHOL/HDL RATIO 11.6 (0.0-5.0); COR CA(FOR HYPOALB) 9.9 mg/dL (8.5-10.1); COR NA(FOR HYPERGLY) 138 mmol/L (136-145); CREATININE 1.48 mg/dL (0.70-1.30); eGFR NON BLACK RACES 51 (>60)
[2025-04-17] MEDS ORDERED: CONSULT PHARMACY - POTASSIUM & MAGNESIUM XX SCH (07:00)
[2025-04-17] MEDS: FARXIGA PO SCH (09:00)
[2025-04-17] MEDS: FIORICET TAB PO ONE (09:00)
[2025-04-17] MEDS: ROCEPHIN VIAL 1 GRAM 1 G in NS 100 ML IV 100 ML IV SCH (09:01)
--- NOTE | 2025-04-17 09:09 | RAD ---
EXAMINATION: CHEST, 1 VIEW HISTORY: SOB, COPD, CHF; . COMPARISON STUDY: Chest x-ray 04/15/2025 TECHNIQUE: Single frontal erect view of the chest FINDINGS: Lungs are expanded. Cardiac silhouette and pulmonary vascular pattern appear normal. Postsurgical changes mediastinum. CP angles are sharp. Bones are intact. IMPRESSION: No acute pulmonary process seen. THIS IS AN ELECTRONICALLY VERIFIED FINAL REPORT 04/17/2025 9:06 AM - Electronically signed by Vicky Mcconnell MD
[2025-04-17 13:30] VITALS: BP 99/61; PULSE 83; RESP 18; TEMP 98.1; O2SAT 94
--- NOTE | 2025-04-17 14:01 | NOTE.SOAP ---
Soap Note Note for Day of Date of Exam: 04/17/25 Subjective Data Subjective Data: mild sob Objective Data Objective Data: bp 100/60 p 83 soft wheeze- getting neb rrr labs: hct 37 cr 1.48 k 4.2 ast 75 alt 68 alk phos 146 RUQ u/s: fatty liver echo: ant hypokinesis ef preserved Assessment Assessment: copd/cad/blanco/fatty liver w elevated lfts Plan Plan: take copy of echo to see Dr penaloza - his primary cardio- to consider ischemic eval now 5 years post cabg. stop smoking
[2025-04-17] MEDS ORDERED: MAG-OX TAB PO SCH (21:00)
== END 2025-04-17 15:50 | disposition home or self-care (01) ==
LOC: MED/SURG 22:16 → ER 22:16 → MED/SURG 04-16 02:28
PROVIDERS: ADMIT Family Medicine; ATTEND Internal Medicine
DX: Z95.2 Presence of prosthetic heart valve; R06.02 Shortness of breath; K76.0 Fatty (change of) liver, not elsewhere classified; M50.221 Other cervical disc displacement at C4-C5 level; Z72.0 Tobacco use; R94.31 Abnormal electrocardiogram [ECG] [EKG]; R26.89 Other abnormalities of gait and mobility; R20.2 Paresthesia of skin; R51.9 Headache, unspecified; E83.42 Hypomagnesemia; R74.8 Abnormal levels of other serum enzymes; J44.9 Chronic obstructive pulmonary disease, unspecified; H70.11 Chronic mastoiditis, right ear; J01.01 Acute recurrent maxillary sinusitis; M19.90 Unspecified osteoarthritis, unspecified site; F41.8 Other specified anxiety disorders; E87.1 Hypo-osmolality and hyponatremia; K80.80 Other cholelithiasis without obstruction; K21.9 Gastro-esophageal reflux disease without esophagitis; I10 Essential (primary) hypertension; E78.5 Hyperlipidemia, unspecified; R79.1 Abnormal coagulation profile; M50.223 Other cervical disc displacement at C6-C7 level; E11.65 Type 2 diabetes mellitus with hyperglycemia; I25.810 Atherosclerosis of coronary artery bypass graft(s) without angina pectoris; R07.89 Other chest pain; R00.0 Tachycardia, unspecified